=== PATIENT | female | born 1980 | race Caucasian/White ===

== ENCOUNTER 2019-03-06 06:00 | Outpatient (RCR) | payer MEDICAID, SELFPAY | END 2019-04-05 00:01 | LOC: SPT 06:00 | PROVIDERS: Family Provider Family Medicine; Visit Provider Family Medicine | DX: G89.29 Other chronic pain (principal); M54.9 Dorsalgia, unspecified | CPT/HCPCS: 97110; 97113 ==

== ENCOUNTER 2019-04-06 14:07 | Outpatient (RCR) | payer MEDICAID, SELFPAY | END 2019-04-08 23:00 | disposition home or self-care (01) | LOC: SPT 14:07 | PROVIDERS: Family Provider Family Medicine; PCP Family Medicine; Visit Provider Family Medicine | DX: M54.5 Low back pain (principal) ==

== ENCOUNTER → 2020-02-21 08:23 | Outpatient (BNVA) | payer MEDICAID, SELFPAY | PROVIDERS: Family Provider Family Medicine; PCP Family Medicine; Visit Provider Anesthesiology Pain Medicine | DX: M54.2 Cervicalgia (principal); M67.911 Unspecified disorder of synovium and tendon, right shoulder; M54.41 Lumbago with sciatica, right side; M47.819 Spondylosis without myelopathy or radiculopathy, site unspecified; M54.9 Dorsalgia, unspecified; M79.18 Myalgia, other site | CPT/HCPCS: 99205 ==

== ENCOUNTER → 2020-02-29 17:49 | Outpatient (BNVA) | payer MEDICAID, SELFPAY | PROVIDERS: Family Provider Family Medicine; PCP Family Medicine; Visit Provider Emergency Medicine | DX: Z20.828 Contact with and (suspected) exposure to other viral communicable diseases (principal) | CPT/HCPCS: 87635 ==

== ENCOUNTER → 2020-03-05 16:33 | Outpatient (BNVA) | payer MEDICAID, SELFPAY | PROVIDERS: Family Provider Family Medicine; PCP Family Medicine; Visit Provider Nurse Practitioner Family | DX: Z20.828 Contact with and (suspected) exposure to other viral communicable diseases (principal); R43.0 Anosmia; J06.9 Acute upper respiratory infection, unspecified | CPT/HCPCS: 87635 ==

== ENCOUNTER 2020-03-15 22:33 | Emergency (ER) | payer MEDICAID, SELFPAY ==
[2020-03-15 22:40] VITALS: BP 155/82; PULSE 84; RESP 18; TEMP 36.4; O2SAT 98; BMI 43.6
--- NOTE | 2020-03-15 22:49 | XR_ITS ---
WS: [id number] XR hand LT min 3V* [id number] REASON FOR EXAM: Injury/pain FINDINGS: Soft tissues appear more prominent around the proximal interphalangeal joint of the left index finger . The joint is intact and no acute fracture is identified. There are 2 tiny ovoid densities in the so ft tissues just medial to the distal and of the proximal phalanx, not an acute abnormality. The bony and joint structures of the remainder of the left hand are unremarkable. XR/XR hand LT min 3V* [id number] IMPRESSION: No fracture or dislocation of the left hand. Possible soft tissue swelling in t he index finger as above.
--- NOTE | 2020-03-15 22:59 | W.ED.EXTPRO ---
HPI - Extremity Problem General: Chief complaint: Extremity Injury, Upper Stated complaint: right hand swelling Time Seen by Provider: 03/15/20 22:51 Source: patient Mode of arrival: ambulatory Limitations: no limitations History of Present Illness: HPI Narrative: 39-year-old female patient presents to the emergency department with left hand pain. 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 Reports hand has become more painful today. She did sustain skin abrasion during the injury. She reports concern hand could be infected. MD Complaint: extremity pain (left hand) and extremity swelling (left hand) Onset (ago): day(s) (2) Pain Consistency: constant Location: left and upper extremity Severity scale (1-10): 6 Quality: aching and dull Relieving factors: immobilization, rest and other (keep the hand elevated) Exacerbating factors: range of motion and other (hanging her hand down) Associated symptoms: Reports no associated symptoms; Deny chest pain, fever(s) or rash Review of Systems General: Reports: 10 or more systems reviewed and unremarkable except in HPI and below Const: Denies: fever(s), chills or diaphoresis Eyes: Denies: blurry vision or eye redness ENMT: Denies: throat pain, dental pain or disequilibrium Card: Denies: chest pain, palpitations or irregular heart rhythm Resp: Denies: dyspnea, productive cough, non-productive cough or wheezing GI: Denies: abdominal pain, nausea or vomiting : Denies: difficulty voiding or dysuria Musc: Reports: extremity pain and extremity swelling; Denies: neck pain, back pain, muscle cramps or muscle weakness Skin/Breast: Reports: erythema, skin tenderness and changes in skin color; Denies: rash or pruritus Neuro: Denies: headache(s), weakness in extremities or behavioral changes Psych: Denies: anxiety, depression or difficulty concentrating Bruce/Lymph: Denies: easy bruising PFSH ED PFSH: Family History Mother Heart disease Diabetes Father Diabetes Family/Other Cancer breast Social History Smoking and tobacco status: former smoker Alcohol intake: never Physical Exam Const: COMMON NORMALS: no acute distress, patient oriented x3, healthy appearing and alert GENERAL APPEARANCE: cooperative, comfortable and well hydrated HENMT: COMMON NORMALS: normocephalic, Normal external nose present and moist oral mucous membranes HEAD & SCALP: normocephalic NOSE: Normal external nose present Eye: COMMON NORMALS: Equal, round and reactive pupils present and EOMs intact bilaterally GENERAL EYE: appearance normal, both eyes and all related structures PUPIL: Yes Equal, round and reactive pupils present Neck/C-Spine: COMMON NORMALS: full ROM and no lymphadenopathy GENERAL: Yes normal visual inspection and Yes trachea midline CERVICAL SPINE: Yes cervical ROM normal Lymph: LYMPHATIC: no lymphadenopathy noted Chest: COMMONS NORMALS: normal inspection of the chest Resp: COMMON NORMALS: normal respiratory effort and clear to auscultation bilaterally AUSCULTATION: clear to auscultation bilaterally Cardio: COMMON NORMALS: regular rhythm, S1 normal heart sound present, S2 normal heart sound present and Peripheral pulses 2+ throughout RHYTHM: regular rhythm HEART SOUNDS: S1 normal heart sound present and S2 normal heart sound present PERIPHERAL PULSES: Peripheral pulses 2+ throughout GI: COMMON NORMALS: Soft to palpation and non-tender INSPECTION: Yes normal to inspection PALPATION: Yes Soft to palpation : COMMON NORMALS: Yes no CVA tenderness BLADDER/KIDNEY EXAM: Yes no CVA tenderness Back/Pelvis: COMMON NORMALS: no CVA tenderness and thoracic and lumbar spine normal to inspection Extremity: COMMON NORMALS: normal to inspection and capillary refill normal GENERAL: Yes normal exam except as noted LEFT UPPER EXTREMITY: Yes wrist (pronation/supination intact) and Yes hand & digits Left hand and digits: Yes inspection (left hand dorsal swelling with abrasion to the dorsal hand), Yes palpation (pain dorsally, MCP), Yes ROM (fingers with flexion/extension ) and Yes neurovascular exam (distally intact) Neuro: COMMON NORMALS: patient oriented x3 and no focal motor deficits SENSORIUM/ORIENTATION: Yes alert Psych: COMMON NORMALS: mental status grossly normal, Normal thought process present and cooperative ACTIVITY/MOTOR BEHAVIOR: Yes appropriate eye contact THOUGHT PROCESS: Normal thought process present Skin: COMMON NORMALS: no rashes or lesions noted and turgor normal GENERAL SKIN EXAM: no rashes or lesions noted and turgor normal Procedures Orthopedic Splinting/Casting Injury #1: Side: left Upper Extremity Injury Location: wrist and hand Upper Extremity Immobilizer: volar splint and Alex wrap (with arm sling - dorsal wound cleansed/LARRY applied, telfa) Course Vital Signs: Vital signs: Vital Signs Temperature 97.6 F 03/15/20 22:40 Pulse Rate 81 03/15/20 23:48 Respiratory Rate 18 03/15/20 22:40 Blood Pressure 150/81 03/15/20 23:48 Pulse Oximetry 98 03/15/20 23:48 MDM - Extremity (Nontraumatic) Imaging Data^: Xray Ortho: My impression: question 2nd digit, middle PIP avulsion fracture - radiologist inturp pending Discharge Plan Discharge Patient Disposition: Home Clinical Impression: Crush injury of hand Qualifiers: Encounter type: initial encounter Laterality: left Qualified Code(s): S67.22XA - Crushing injury of left hand, initial encounter Abrasion hand Qualifiers: Encounter type: initial encounter Laterality: left Qualified Code(s): S60.512A - Abrasion of left hand, initial encounter Fracture of finger Qualifiers: Encounter type: initial encounter Finger: index finger Fracture type: closed Phalanx: middle Fracture alignment: nondisplaced Laterality: left Qualified Code(s): S62.651A - Nondisplaced fracture of middle phalanx of left index finger, initial encounter for closed fracture Condition: Stable Prescriptions: New clindamycin HCl 300 mg capsule 300 mg PO QID 7 Days Qty: 28 RF: 0 No Action levocetirizine 5 mg tablet 5 mg PO DAILY RF: 0 pregabalin [Lyrica] 25 mg capsule 25 mg PO BID RF: 0 baclofen 10 mg tablet 10 mg PO .1-2 TID RF: 0 bupropion HCl 300 mg tablet extended release 24 hr 300 mg PO ONCE RF: 0 ibuprofen 800 mg tablet 800 mg PO Q8H RF: 0 tizanidine 2 mg tablet 2 mg PO BID PRN (Reason: muscle spasticity) Qty: 60 RF: 0 Discharge Orders: Discharge ED (Routine); Ordered 03/15/20 Ordered By: Kathia Palacios Referrals: Don Shi MD [Primary Care Provider] - Discharge Diet: Usual diet Discharge Activity: Limit activity as instructed Patient Instructions: Crush Injury, Splint Care (ED), Abrasion (ED) Activity Restrictions/Additional Instructions: Take clindamycin until all gone, even if feeling better May wash wound with soap and water, pat dry Return to the emergency department if you develop increased hand swelling, red streaking from the abrasions, inability to move your fingers Follow-up with your primary care physician next week if not improved Apply cool compresses to the left hand to help with swelling and pain Continue arm sling to help with elevation of the hand Coding Level of Care Code ED [employer] Library Director for Shagufta Christopher Exam Comprehensive
[2020-03-15] MEDS: clindamycin 150 mg Capsule 300 MG PO (23:12)
[2020-03-15] MEDS: acetaminophen 500 mg Tablet 1000 MG PO (23:12)
[2020-03-15 23:48] VITALS: BP 150/81; PULSE 81; O2SAT 98
== END 2020-03-15 23:48 | disposition home or self-care (01) ==
PROVIDERS: Emergency Provider Nurse Practitioner Family; PCP Family Medicine
DX: S60.512A Abrasion of left hand, initial encounter (principal); S62.651A Nondisplaced fracture of middle phalanx of left index finger, initial encounter for closed fracture; S67.22XA Crushing injury of left hand, initial encounter; Z87.891 Personal history of nicotine dependence; W23.0XXA Caught, crushed, jammed, or pinched between moving objects, initial encounter
CPT/HCPCS: 12345; 29125; 73130; 99281; 99283

== ENCOUNTER 2020-04-04 05:06 | Emergency (ER) | payer MEDICAID, SELFPAY ==
[2020-04-04] VITALS (7 sets, daily range): BP systolic 139–173; BP diastolic 100–128; PULSE 80–90; RESP 18–30; TEMP 36.8; O2SAT 94–98; BMI 43.2
--- NOTE | 2020-04-04 05:27 | ECG_ITS ---
[facility] Test Date: 2020-04-04 Pat Name: Petra Herrera Department: Room: Gender: Female Veterinary Virologist: : 1980 Requested By: Deepika Holland Order Number: [id number] Gray MD: Ana Benavides M.D. Measurements Intervals [place] Rate: 88 P: 57 [place]: 130 QRS: 8 QRSD: 101 T: 47 QT: 333 QTc: 405 Interpretive Statements SINUS RHYTHM WITH SINUS ARRHYTHMIA POSSIBLE LEFT ATRIAL ENLARGEMENT [-0.1mV P WAVE IN V1/V2] INCOMPLETE RIGHT BUNDLE BRANCH BLOCK [90+ ms QRS DURATION, TERMINAL R IN V1/V2, 40+ ms S IN I/aVL/V4/V5/V6] No previous ECG available for comparison Electronically Signed On 04-04-2020 16:52:40 PAPER PATTERN FOLDER by Ana Benavides M.D. [id number]
--- NOTE | 2020-04-04 05:27 | XRR_ITS ---
PROCEDURE INFORMATION: Exam: XR Chest, 1 View Exam date and time: 04/04/2020 5:38 AM Age: 40 years old Clinical indication: Cough and shortness of breath; Additional info: SOB TECHNIQUE: Imaging protocol: XR of the chest Views: 1 view. COMPARISON: No relevant prior studies available. FINDINGS: Lungs: Unremarkable. No consolidation. Pleural space: Unremarkable. No pleural effusion. No pneumothorax. Heart/Mediastinum: Unremarkable. No cardiomegaly. Bones/joints: Unremarkable. XR/XR chest 1V portable [id number] IMPRESSION: No acute findings.
--- NOTE | 2020-04-04 05:30 | ED_ITS ---
Documented by User: Deepika Holland MD 04/04/20 05:37 HPI - SOB/Dyspnea General: Chief Complaint: Shortness of Breath/Dyspnea Stated Complaint: trouble breathing Time Seen by Provider: 04/04/20 05:23 Source: patient Mode of arrival: ambulatory Limitations: no limitations History of Present Illness: HPI Narrative: 40-year-old female has a long history of asthma states over the last 2 to 3 days she has had increasing cough and wheezing and dyspnea. She has had no fevers at home. She is concerned she may have Covid as her child is going to [place] tomorrow wants to make sure she does not have Covid. She states that she does get bronchitis and asthma attacks at this time of the year with the weather change. She denies any worsening improving factors. Associated symptoms: Deny abdominal pain, chest pain, fever(s), nausea or vomiting Review of Systems Const: Denies: fever(s), chills, body aches or change in appetite Eyes: Denies: blurry vision or eye discomfort ENMT: Denies: throat pain or dental pain Card: Denies: chest pain Resp: Reports: dyspnea, non-productive cough and wheezing GI: Denies: abdominal pain, nausea, vomiting or diarrhea : Denies: dysuria Musc: Denies: neck pain or back pain Skin/Breast: Denies: rash Neuro: Denies: headache(s) Psych: Denies: depression Bruce/Lymph: Denies: easy bruising All/Imm: Denies: urticaria PFSH ED PFSH: Family History Mother Heart disease Diabetes Father Diabetes Family/Other Cancer breast Social History Smoking and tobacco status: former smoker Alcohol intake: never Female Reproductive History: Date of last menstrual period: 03/08/20 Physical Exam Const: COMMON NORMALS: no acute distress, patient oriented x3 and healthy appearing HENMT: COMMON NORMALS: normocephalic and atraumatic HEAD & SCALP: normocephalic and atraumatic Eye: COMMON NORMALS: Equal, round and reactive pupils present and EOMs intact bilaterally PUPIL: Yes Equal, round and reactive pupils present Neck/C-Spine: COMMON NORMALS: full ROM and supple Chest: COMMONS NORMALS: normal inspection of the chest and normal palpation of entire chest wall Resp: COMMON NORMALS: normal respiratory effort, No retractions and No use of accessory muscles EFFORT & INSPECTION: Yes tachypneic AUSCULTATION: wheezes Cardio: COMMON NORMALS: regular rate, regular rhythm and No murmurs present (Cardio) RATE: regular rate RHYTHM: regular rhythm GI: COMMON NORMALS: Normal to inspection, nondistended, normoactive bowel sounds present, Soft to palpation, non-tender and no masses PALPATION: Yes Soft to palpation Extremity: COMMON NORMALS: normal to inspection and full ROM Neuro: COMMON NORMALS: patient oriented x3, moves all extremities and no focal motor deficits Psych: COMMON NORMALS: mental status grossly normal, Normal thought process present and cooperative THOUGHT PROCESS: Normal thought process present Skin: COMMON NORMALS: no rashes or lesions noted and no wounds GENERAL SKIN EXAM: no rashes or lesions noted Course Vital Signs: Vital signs: Vital Signs Temperature 98.2 F 04/04/20 05:13 Pulse Rate 82 04/04/20 06:32 Respiratory Rate 18 04/04/20 05:48 Blood Pressure 173/116 04/04/20 06:32 Pulse Oximetry 94 04/04/20 06:32 MDM - SOB/Dyspnea Lab Data: Labs: Lab Results 04/04/20 04/04/20 04/04/20 Range/Units 05:26 05:26 05:26 WBC 10.2 H (4.0-10.0) 10^3/ uL RBC 5.31 H (4.1-5.3) 10^6/u L Hgb 14.3 (11.5-15.3) g/dL Hct 45.7 (37.0-47.0) % MCV 86.1 (81-99) fL MCH 26.9 L (28.0-34.0) pg MCHC 31.3 (30.0-36.0) g/dL RDW 13.3 (12.1-15.1) % Plt Count 337 (130-400) 10^3/c mm MPV 10.0 (7.4-10.4) fL Neut % (Auto) 69.0 % Lymph % (Auto) 21.1 % Crane % (Auto) 6.0 % Eos % (Auto) 2.8 % Baso % (Auto) 0.5 % Neut # (Auto) 7.07 (1.8-7.7) 10^3/u L Lymph # (Auto) 2.2 (0.8-4.8) 10^3/u L Crane # (Auto) 0.6 (0.2-0.9) 10^3/u L Eos # (Auto) 0.3 (0.0-0.8) 10^3/u L Baso # (Auto) 0.1 (0.0-0.1) 10^3/u L Nucleated RBC % (a uto) 0 % Nucleated RBCs # 0.0 /100WBC D-Dimer 0.56 (0-0.59) ug/mIFE U Sodium 138 (136-145) mmol/L Potassium 4.4 (3.5-5.1) mmol/L Chloride 104 (98-107) mmol/L Carbon Dioxide 23 (22-29) mmol/L Anion Gap 15.4 (5-19) BUN 20 (6-20) mg/dL Creatinine 0.8 (0.5-0.9) mg/dL GFR Calculation 78.7 L (90-130) mL/min Glucose 110 (65-115) mg/dL Calculated Osmolal ity 289 (285-295) mOsm/k g Calcium 9.3 (8.5-10.5) mg/dL Total Bilirubin 0.2 (0.15-1.2) mg/dL AST 15 (0-32) U/L ALT 15 (0-33) U/L Alkaline Phosphata se 79 (35-105) IU/L NT-Pro-B Natriuret Pep 30 (0-125) pg/mL Total Protein 7.1 (6.6-8.7) g/dL Albumin 4.4 (3.5-5.2) g/dL Globulin 2.7 (1.3-4.6) g/dL SARS-CoV-2 Ag (Rap id) (Negative) 04/04/20 Range/Units 05:44 WBC (4.0-10.0) 10^3/ uL RBC (4.1-5.3) 10^6/u L Hgb (11.5-15.3) g/dL Hct (37.0-47.0) % MCV (81-99) fL MCH (28.0-34.0) pg MCHC (30.0-36.0) g/dL RDW (12.1-15.1) % Plt Count (130-400) 10^3/c mm MPV (7.4-10.4) fL Neut % (Auto) % Lymph % (Auto) % Crane % (Auto) % Eos % (Auto) % Baso % (Auto) % Neut # (Auto) (1.8-7.7) 10^3/u L Lymph # (Auto) (0.8-4.8) 10^3/u L Crane # (Auto) (0.2-0.9) 10^3/u L Eos # (Auto) (0.0-0.8) 10^3/u L Baso # (Auto) (0.0-0.1) 10^3/u L Nucleated RBC % (a uto) % Nucleated RBCs # /100WBC D-Dimer (0-0.59) ug/mIFE U Sodium (136-145) mmol/L Potassium (3.5-5.1) mmol/L Chloride (98-107) mmol/L Carbon Dioxide (22-29) mmol/L Anion Gap (5-19) BUN (6-20) mg/dL Creatinine (0.5-0.9) mg/dL GFR Calculation (90-130) mL/min Glucose (65-115) mg/dL Calculated Osmolal ity (285-295) mOsm/k g Calcium (8.5-10.5) mg/dL Total Bilirubin (0.15-1.2) mg/dL AST (0-32) U/L ALT (0-33) U/L Alkaline Phosphata se (35-105) IU/L NT-Pro-B Natriuret Pep (0-125) pg/mL Total Protein (6.6-8.7) g/dL Albumin (3.5-5.2) g/dL Globulin (1.3-4.6) g/dL SARS-CoV-2 Ag (Rap id) Positive H (Negative) EKG Data^: EKG 1: Attestation: I personally reviewed and interpreted this EKG as follows: EKG Interpretation Date: 04/04/20 EKG interpretation time: 05:20 Interpretation: Normal sinus rhythm heart rate [address] or T wave abnormalities QRS 101 QTc 379 Discharge Plan Discharge Patient Disposition: Home Clinical Impression: COVID-19, Asthma with exacerbation Condition: Stable Prescriptions: New dexamethasone 6 mg tablet 6 mg PO DAILY Qty: 7 RF: 0 No Action levocetirizine 5 mg tablet 5 mg PO DAILY RF: 0 pregabalin [Lyrica] 25 mg capsule 25 mg PO BID RF: 0 baclofen 10 mg tablet 10 mg PO .1-2 TID RF: 0 bupropion HCl 300 mg tablet extended release 24 hr 300 mg PO ONCE RF: 0 ibuprofen 800 mg tablet 800 mg PO Q8H RF: 0 tizanidine 2 mg tablet 2 mg PO BID PRN (Reason: muscle spasticity) Qty: 60 RF: 0 Discharge Orders: Discharge ED (Routine); Ordered 04/04/20 Ordered By: Savage Gaona Referrals: oDn Shi MD [Primary Care Provider] - Discharge Diet: Usual diet Discharge Activity: Increase activity as tolerated Activity Restrictions/Additional Instructions: We will have you return to the antibody infusion clinic later this morning for an infusion of monoclonal antibodies which we discussed prior to your discharge. Monitor oxygen saturations at home with a monitor given to you today. Use albuterol as needed and dexamethasone regularly Sign Out Sign Out Data: Patient Sign Out occurred on 04/04/20 at 06:16. Patient's care was discussed, and care was transferred from to Savage Gaona DO. Coding Level of Care Code ED Sex Offender Treatment Professional for Chg Fwd Exam Comprehensive Documented by User: Savage Gaona DO 04/04/20 07:22 HPI - SOB/Dyspnea General: Chief Complaint: Shortness of Breath/Dyspnea Stated Complaint: trouble breathing Time Seen by Provider: 04/04/20 05:23 PFSH ED PFSH: Family History Mother Heart disease Diabetes Father Diabetes Family/Other Cancer breast Social History Smoking and tobacco status: former smoker Alcohol intake: never Physical Exam Const: COMMON NORMALS: no acute distress GENERAL APPEARANCE: cooperative and comfortable ORIENTATION/CONSCIOUSNESS: Yes awake, Yes oriented to person, Yes oriented to place and Yes oriented to time HENMT: COMMON NORMALS: normocephalic, atraumatic and hearing grossly normal bilaterally HEAD & SCALP: normocephalic and atraumatic Neck/C-Spine: COMMON NORMALS: no JVD Resp: COMMON NORMALS: normal respiratory effort, No retractions, No use of accessory muscles and clear to auscultation bilaterally AUSCULTATION: clear to auscultation bilaterally Cardio: COMMON NORMALS: no JVD, regular rate, regular rhythm and No murmurs present (Cardio) RATE: regular rate RHYTHM: regular rhythm Extremity: COMMON NORMALS: normal to inspection, capillary refill normal, no clubbing, cyanosis or edema, no calf tenderness and no pedal edema Neuro: SENSORIUM/ORIENTATION: Yes oriented to person, Yes oriented to place and Yes oriented to time Course Vital Signs: Vital signs: Vital Signs Temperature 98.2 F 04/04/20 05:13 Pulse Rate 82 04/04/20 06:32 Respiratory Rate 18 04/04/20 05:48 Blood Pressure 173/116 04/04/20 06:32 Pulse Oximetry 94 04/04/20 06:32 MDM - SOB/Dyspnea MDM Narrative: Medical decision making narrative: Care assumed at change of shift. Labs reviewed patient is positive for Covid. Based on her BMI under asthma she would qualify for monoclonal antibody infusion. Started on dexamethasone and encouraged to use her in albuterol inhaler as needed. We will have her monitor her oxygen sats at home. If she has any worsening or change symptoms she should return to the emergency room immediately. She will return to the antibody infusion clinic later this morning to receive monoclonal antibodies a consent has been signed she wishes to proceed. Lab Data: Labs: Lab Results 04/04/20 04/04/20 04/04/20 Range/Units 05:26 05:26 05:26 WBC 10.2 H (4.0-10.0) 10^3/ uL RBC 5.31 H (4.1-5.3) 10^6/u L Hgb 14.3 (11.5-15.3) g/dL Hct 45.7 (37.0-47.0) % MCV 86.1 (81-99) fL MCH 26.9 L (28.0-34.0) pg MCHC 31.3 (30.0-36.0) g/dL RDW 13.3 (12.1-15.1) % Plt Count 337 (130-400) 10^3/c mm MPV 10.0 (7.4-10.4) fL Neut % (Auto) 69.0 % Lymph % (Auto) 21.1 % Crane % (Auto) 6.0 % Eos % (Auto) 2.8 % Baso % (Auto) 0.5 % Neut # (Auto) 7.07 (1.8-7.7) 10^3/u L Lymph # (Auto) 2.2 (0.8-4.8) 10^3/u L Crane # (Auto) 0.6 (0.2-0.9) 10^3/u L Eos # (Auto) 0.3 (0.0-0.8) 10^3/u L Baso # (Auto) 0.1 (0.0-0.1) 10^3/u L Nucleated RBC % (a uto) 0 % Nucleated RBCs # 0.0 /100WBC D-Dimer 0.56 (0-0.59) ug/mIFE U Sodium 138 (136-145) mmol/L Potassium 4.4 (3.5-5.1) mmol/L Chloride 104 (98-107) mmol/L Carbon Dioxide 23 (22-29) mmol/L Anion Gap 15.4 (5-19) BUN 20 (6-20) mg/dL Creatinine 0.8 (0.5-0.9) mg/dL GFR Calculation 78.7 L (90-130) mL/min Glucose 110 (65-115) mg/dL Calculated Osmolal ity 289 (285-295) mOsm/k g Calcium 9.3 (8.5-10.5) mg/dL Total Bilirubin 0.2 (0.15-1.2) mg/dL AST 15 (0-32) U/L ALT 15 (0-33) U/L Alkaline Phosphata se 79 (35-105) IU/L NT-Pro-B Natriuret Pep 30 (0-125) pg/mL Total Protein 7.1 (6.6-8.7) g/dL Albumin 4.4 (3.5-5.2) g/dL Globulin 2.7 (1.3-4.6) g/dL SARS-CoV-2 Ag (Rap id) (Negative) 04/04/20 Range/Units 05:44 WBC (4.0-10.0) 10^3/ uL RBC (4.1-5.3) 10^6/u L Hgb (11.5-15.3) g/dL Hct (37.0-47.0) % MCV (81-99) fL MCH (28.0-34.0) pg MCHC (30.0-36.0) g/dL RDW (12.1-15.1) % Plt Count (130-400) 10^3/c mm MPV (7.4-10.4) fL Neut % (Auto) % Lymph % (Auto) % Crane % (Auto) % Eos % (Auto) % Baso % (Auto) % Neut # (Auto) (1.8-7.7) 10^3/u L Lymph # (Auto) (0.8-4.8) 10^3/u L Crane # (Auto) (0.2-0.9) 10^3/u L Eos # (Auto) (0.0-0.8) 10^3/u L Baso # (Auto) (0.0-0.1) 10^3/u L Nucleated RBC % (a uto) % Nucleated RBCs # /100WBC D-Dimer (0-0.59) ug/mIFE U Sodium (136-145) mmol/L Potassium (3.5-5.1) mmol/L Chloride (98-107) mmol/L Carbon Dioxide (22-29) mmol/L Anion Gap (5-19) BUN (6-20) mg/dL Creatinine (0.5-0.9) mg/dL GFR Calculation (90-130) mL/min Glucose (65-115) mg/dL Calculated Osmolal ity (285-295) mOsm/k g Calcium (8.5-10.5) mg/dL Total Bilirubin (0.15-1.2) mg/dL AST (0-32) U/L ALT (0-33) U/L Alkaline Phosphata se (35-105) IU/L NT-Pro-B Natriuret Pep (0-125) pg/mL Total Protein (6.6-8.7) g/dL Albumin (3.5-5.2) g/dL Globulin (1.3-4.6) g/dL SARS-CoV-2 Ag (Rap id) Positive H (Negative) Discharge Plan Discharge Patient Disposition: Home Clinical Impression: COVID-19, Asthma with exacerbation Condition: Stable Prescriptions: New dexamethasone 6 mg tablet 6 mg PO DAILY Qty: 7 RF: 0 No Action levocetirizine 5 mg tablet 5 mg PO DAILY RF: 0 pregabalin [Lyrica] 25 mg capsule 25 mg PO BID RF: 0 baclofen 10 mg tablet 10 mg PO .1-2 TID RF: 0 bupropion HCl 300 mg tablet extended release 24 hr 300 mg PO ONCE RF: 0 ibuprofen 800 mg tablet 800 mg PO Q8H RF: 0 tizanidine 2 mg tablet 2 mg PO BID PRN (Reason: muscle spasticity) Qty: 60 RF: 0 Discharge Orders: Discharge ED (Routine); Ordered 04/04/20 Ordered By: Savage Gaona Referrals: Don Shi MD [Primary Care Provider] - Discharge Diet: Usual diet Discharge Activity: Increase activity as tolerated Activity Restrictions/Additional Instructions: We will have you return to the antibody infusion clinic later this morning for an infusion of monoclonal antibodies which we discussed prior to your discharge. Monitor oxygen saturations at home with a monitor given to you today. Use albuterol as needed and dexamethasone regularly Sign Out Sign Out Data: Patient Sign Out occurred on 04/04/20 at 06:16. Patient's care was discussed, and care was transferred from to Savage Gaona DO. Coding Level of Care Code ED Sex Offender Treatment Professional for Dimasg Fwd Exam Comprehensive
[2020-04-04 05:36] LABS: Basophils # 0.1 10^3/uL (0.0-0.1); Basophils % 0.5 %; Eosinophils # 0.3 10^3/uL (0.0-0.8); Eosinophils % 2.8 %; Hematocrit 45.7 % (37.0-47.0); Hemoglobin 14.3 g/dL (11.5-15.3); Lymphocytes # 2.2 10^3/uL (0.8-4.8); Lymphocytes % 21.1 %; Mean Corpuscular HGB Conc 31.3 g/dL (30.0-36.0); Mean Corpuscular Hemoglobin 26.9 pg (28.0-34.0); Mean Corpuscular Volume 86.1 fL (81-99); Monocytes # 0.6 10^3/uL (0.2-0.9); Neutrophils # 7.07 10^3/uL (1.8-7.7); Nucleated Red Blood Cells % 0 %; Platelet Count 337 10^3/cmm (130-400); Red Blood Count 5.31 10^6/uL (4.1-5.3); Red Cell Distribution Width 13.3 % (12.1-15.1); White Blood Count 10.2 10^3/uL (4.0-10.0)
[2020-04-04] MEDS: albuterol 8 gm MDI 2 PUFF INHALATION (05:48)
[2020-04-04 05:51] LABS: D Dimer 0.56 ug/mIFEU (0-0.59)
[2020-04-04 06:30] LABS: Alanine Aminotransferase 15 U/L (0-33); Albumin Level 4.4 g/dL (3.5-5.2); Alkaline Phosphatase 79 IU/L (35-105); Anion Gap 15.4 (5-19); Aspartate Amino Transferase 15 U/L (0-32); Blood Urea Nitrogen 20 mg/dL (6-20); Calcium 9.3 mg/dL (8.5-10.5); Carbon Dioxide 23 mmol/L (22-29); Chloride 104 mmol/L (98-107); Globulin 2.7 g/dL (1.3-4.6); Glomerular Filtration Rate 78.7 mL/min (90-130); Glucose 110 mg/dL (65-115); NT Pro B Type Natriuretic Pept 30 pg/mL (0-125); Osmolality Calculated 289 mOsm/kg (285-295); Potassium 4.4 mmol/L (3.5-5.1); Sodium 138 mmol/L (136-145); Total Bilirubin 0.2 mg/dL (0.15-1.2); Total Protein 7.1 g/dL (6.6-8.7)
[2020-04-04 06:30] LABS: SARS Covid-2 Antigen Positive (Negative)
--- NOTE | 2020-04-04 10:49 | PC.NURSE ---
Patient given pulse ox prior to DC
== END 2020-04-04 07:24 | disposition home or self-care (01) ==
PROVIDERS: Emergency Medicine; Emergency Provider Family Medicine; PCP Family Medicine
DX: U07.1 COVID-19 (principal); J45.901 Unspecified asthma with (acute) exacerbation; Z87.891 Personal history of nicotine dependence
CPT/HCPCS: 12345; 71045; 80053; 83880; 85025; 85378; 87426; 93005; 94640; 96374; 96375; 99283; 99284; J2930; J3535

== ENCOUNTER 2020-04-04 09:12 | Outpatient (CLI) | payer MEDICAID, SELFPAY ==
--- NOTE | 2020-04-04 09:56 | AMB.MCA ---
Patient Information Referred by: Candelaria Symptom onset date: 04/01/20 COVID 19 common symptoms: positive dyspnea, fatigue and headache(s) COVID 19 other sytmptoms: negative chest pressure, chest pain, pleuritic pain, requiring oxygen or requiring more oxygen Severity: moderate Treatment prior to arrival: none [facility] COVID test results: SARS-CoV-2 Antigen (Rapid) Positive (Negative) H 04/04/20 05:44 04/04/20 SARS-CoV-2 RNA (RT-PCR) Not detected (NOT DETECTED) 03/05/20 16:33 03/05/20 Criteria/Plan Inclusion/Exclusion Criteria weight >/= 40kg, + direct test </= 10 days ago and symptom onset </= 10 days ago BMI >/= 35 and has immunosuppressive disease not requiring hospitalization, not requiring oxygen (if not chronically on oxygen) and no increase oxygen requirement (if chronically on oxygen) Patient education patient/caregiver received/reviewed fact sheet, Emergency Use Authorization/unapproved drug status discussed with patient/caregiver, alternatives to this treatment discussed with patient/caregiver, risks and benefits of medication reviewed with patient/caregiver, patient/caregiver given opportunity for questions, which were answered and patient/caregiver consents to receiving Monoclonal Antibody Treatment Plan for treatment Meets criteria for Monoclonal Antibody infusion
[2020-04-04 10:07] VITALS: BP 168/85; PULSE 102; RESP 18; TEMP 36.6; O2SAT 98; BMI 43.2
[2020-04-04 10:41] VITALS: BP 141/89; PULSE 105; RESP 18; TEMP 36.6; O2SAT 97
[2020-04-04 11:02] VITALS: BP 139/83; PULSE 100; RESP 19; TEMP 36.7; O2SAT 97
[2020-04-04 12:25] VITALS: BP 128/87; PULSE 107; RESP 18; TEMP 36.7; O2SAT 98
--- NOTE | 2020-04-05 15:55 | DCPLANNER ---
Addendum entered by Inocencia Garces 04/17/20 16:24: Patient returned case work aide phone call. Patient stated that she is having some medical issues, she stated that she went to see her primary care and that her primary care physician started her on some medications. Patient has not been admitted to the hospital. Addendum entered by Inocencia Garces 04/17/20 13:46: dietary services manager called to check on patient 10 days after receiving the infusion. dietary services manager was unable to speak with patient, a voicemail was left for patient to return case work aide phone call. Addendum entered by Inocencia Garces 04/12/20 15:13: Called to check on patient after receiving the BAM infusion. Patient stated that she is doing good, not as well today as before, but doing OK. Addendum entered by Inocencia Garces 04/10/20 14:42: dietary services manager had message that patient received the BAM infusion. dietary services manager called to check on patient after receiving the infusion. Patient stated that she tolorated the infusion well, patient stated that before the infusion that the only symptom that she really had was that her asthma attacks were not stopping, she did not have a fever, she had a slight headache. After the infusion, she stated that she is feeling better, that her asthma attacks are better she still has some issues with them. Said that she still has some issues with her lungs. A follow up appointment was scheduled with Dr. Shi for Thursday, April 16, 2020 at 1:[address] Shi. dietary services manager called and gave patient the appointment information. Original Note: late entry - case manage faxed order for the BAM infusion to centralized scheduling on 04.04.20.
== END 2020-04-04 12:30 | disposition home or self-care (01) ==
PROVIDERS: PCP Family Medicine; Referring Provider Nurse Practitioner Family; Visit Provider Family Medicine
DX: U07.1 COVID-19 (principal)
CPT/HCPCS: J7050

== ENCOUNTER → 2020-10-05 11:16 | Outpatient (BNVA) | payer MEDICAID, SELFPAY | PROVIDERS: PCP Family Medicine; Visit Provider Surgery | DX: Z01.812 Encounter for preprocedural laboratory examination (principal); Z20.822 Contact with and (suspected) exposure to COVID-19 | CPT/HCPCS: 87635 ==

== ENCOUNTER → 2020-11-30 13:17 | Outpatient (BNVA) | payer MEDICAID, SELFPAY | PROVIDERS: PCP Family Medicine; Visit Provider Surgery | DX: Z20.822 Contact with and (suspected) exposure to COVID-19 (principal) | CPT/HCPCS: 87635 ==

== ENCOUNTER 2020-12-06 08:49 | Day surgery (SDC) | payer MEDICAID, SELFPAY ==
[2020-12-03 13:35] VITALS: BMI 42.9
[2020-12-06 09:20] VITALS: BP 135/107; PULSE 80; RESP 18; TEMP 36.7; O2SAT 99
--- NOTE | 2020-12-06 09:27 | ANES.PREANE2 ---
Pre-Anesthetic Assessment Pre-Anesthetic Assessment: Height/Weight: Height 1.63 m Weight 113.398 kg Preop Diagnosis: GERD, constipation Proposed Procedure: Operation Date: 12/06/20 09:30 Proposed Procedures p EGD 43020 66728 K21.9(Not Applicable) - Cody Contreras MD s Colonoscopy 99570 40779 K21.9(Not Applicable) - Cody Contreras MD Was Beta Elda taken within 24 hours: N/A Was Clonidine taken within 24 hours: N/A Last intake: 12/05/20222912/04/202029 Social: Social History: Alcohol and No tobacco Exam: Pre-Anes Outpt Exam: alert, oriented x 3 and clear to auscultation bilaterally Airway: Submandibular: WNL Cervical ROM: WNL MP: 2 Dentition: Full History/ROS: No significant history except as noted Pulmonary: Pulmonary: Asthma CV/HEM: CV/HEM: None reported : : None reported Hepatic: Hepatic: None reported GI: GI: GERD and Hiatus hernia Metabolic: Metabolic: Morbid obesity Musc/skel: Musc/skel: Lower Back Pain Comments: myofascial pain dysfunction syndrome chronic neck and back pain. Neuropsych: Neuropsych: Anxiety, Depression and Seizure (seizure free 15 years no offical diagnosis per patient) Anesthetic Plan: ASA status: 3 Anesthesia: MAC Risk of > 500 ml blood loss (7ml/kg in children): No PFSH Anesthesia PFSH: Medical History (Updated 09/14/20 @ 11:19 by Cody Contreras MD) Constipation GERD (gastroesophageal reflux disease) Surgical History (Updated 09/14/20 @ 11:19 by Cody Contreras MD) H/O oral surgery Hx of appendectomy lap-1979 Hx of carpal tunnel repair right side- 2017 Hx of dilation and curettage Hx of removal of cyst behind both ears Hx of shoulder surgery right shoulder tear repair-2017 Family History Mother Heart disease Diabetes Father Diabetes Family/Other Cancer breast Social History Smoking and tobacco status: former smoker Alcohol intake: never Female Reproductive History: Date of last menstrual period: 11/13/20 Data Anesthesia Cardiac Studies: No Data to Display
--- NOTE | 2020-12-06 09:40 | P.HP_ITS ---
Same Day Surgery H&P Indication for Procedure/HPI DATE OF PROCEDURE: December 06, 2020 CHIEF COMPLAINT/INDICATIONFOR SURGICAL PROCEDURE: EGD/colon PREOP DIAGNOSIS: GERD, constipation PLANNED PROCEDRUE: Operation Date: 12/06/20 09:30 Proposed Procedures p EGD [id number] K21.9(Not Applicable) - Cody Contreras MD s Colonoscopy [id number] K21.9(Not Applicable) - Cody Contreras MD Medications/Allergies* Home Medications Medication Instructions Recorded Confirmed Type baclofen 10 mg tablet 10 mg PO .1-2 TID tab 02/21/20 12/06/20 History ibuprofen 800 mg tablet 800 mg PO Q8H 02/21/20 12/06/20 History levocetirizine 5 mg tablet 5 mg PO DAILY 02/21/20 12/06/20 History pregabalin 25 mg capsule 25 mg PO BID 02/21/20 12/06/20 History albuterol sulfate [ProAir HFA] 2 puff INHALATION QID PRN 12/03/20 12/06/20 History ondansetron HCl 4 mg PO Q6H PRN 12/03/20 12/06/20 History pantoprazole 40 mg PO DAILY 12/03/20 12/06/20 History tizanidine 4 mg PO Q6H PRN 12/03/20 12/06/20 History Allergies/Adverse Reactions Allergy/AdvReac Type Severity Reaction Status Date / Time glycerin Allergy break out Verified 09/14/20 08:53 into sore with bright redness morphine Allergy Unknown Verified 09/14/20 08:53 adhesive tape AdvReac UNK Verified 09/14/20 08:53 codeine AdvReac RASH Verified 09/14/20 08:53 latex AdvReac ITCHING Verified 09/14/20 08:53 Penicillins AdvReac RASH Verified 09/14/20 08:53 Pertinent History/Comorbid Conditions* Medical History (Updated 09/14/20 @ 11:19 by Cody Contreras MD) Constipation GERD (gastroesophageal reflux disease) Surgical History (Updated 09/14/20 @ 11:19 by Cody Contreras MD) H/O oral surgery Hx of appendectomy lap-1979 Hx of carpal tunnel repair right side- 2018 Hx of dilation and curettage Hx of removal of cyst behind both ears Hx of shoulder surgery right shoulder tear repair-2017 Family History (Updated 02/21/20 @ 08:46 by QIAN Jones) Diabetes Mother Father Heart disease Mother Cancer Family/Other breast Social History Smoking and tobacco status: former smoker Alcohol intake: never Pertinent Exam Findings alert, oriented x 3 and regular rate & rhythm Recommendations Surgery/Procedure today Coding Level of Care Code Acute Mechanical System Technician for Shagufta Christopher
[2020-12-06] MEDS: sodium chloride 0.9% 1,000 ML 30 ML IV (09:41)
[2020-12-06 10:21] VITALS: BP 119/77; PULSE 80; RESP 16; TEMP 36.3; O2SAT 95
[2020-12-06 10:33] VITALS: BP 120/79; PULSE 71; RESP 16; O2SAT 98
--- NOTE | 2020-12-06 10:39 | ANE.PACU2 ---
Inpatient post-anesthesia follow up: Airway intact: Yes Vital signs: Temperature 97.4 F Pulse Rate 71 Respiratory Rate 16 Blood Pressure 120/79 Pulse Oximetry 98 Oxygen Delivery Me thod Room Air Oxygen Flow Rate Fraction of Inspir ed Oxygen Hydration adequate: Yes Mental status: Baseline
== END 2020-12-06 11:05 | disposition home or self-care (01) ==
PROVIDERS: PCP Family Medicine; Visit Provider Surgery
PROC: 0DJ08ZZ Inspection of Upper Intestinal Tract, Via Natural or Artificial Opening Endoscopic (ICD-10-PCS; CPT 43235; principal; 2020-12-06 09:30)
PROC: 0DJD8ZZ Inspection of Lower Intestinal Tract, Via Natural or Artificial Opening Endoscopic (ICD-10-PCS; CPT 45378; 2020-12-06 09:30)
DX: K59.00 Constipation, unspecified (principal); K21.9 Gastro-esophageal reflux disease without esophagitis; Z87.891 Personal history of nicotine dependence; Z82.49 Family history of ischemic heart disease and other diseases of the circulatory system; Z83.3 Family history of diabetes mellitus; K29.70 Gastritis, unspecified, without bleeding; K20.90 Esophagitis, unspecified without bleeding; K57.30 Diverticulosis of large intestine without perforation or abscess without bleeding; K64.8 Other hemorrhoids; E66.01 Morbid (severe) obesity due to excess calories; Z68.41 Body mass index [BMI] 40.0-44.9, adult
CPT/HCPCS: 43239; 45378; 88305; 96360; J7030

== ENCOUNTER → 2021-03-14 11:17 | Outpatient (BNVA) | payer MEDICAID, SELFPAY | PROVIDERS: PCP Family Medicine; Visit Provider Nurse Practitioner Family | DX: Z20.822 Contact with and (suspected) exposure to COVID-19 (principal); R50.9 Fever, unspecified; J45.41 Moderate persistent asthma with (acute) exacerbation | CPT/HCPCS: 87635 ==

== ENCOUNTER → 2021-04-18 11:10 | Outpatient (BNVA) | payer MEDICAID, SELFPAY | PROVIDERS: PCP Family Medicine; Visit Provider Nurse Practitioner Family | DX: Z20.822 Contact with and (suspected) exposure to COVID-19 (principal) | CPT/HCPCS: 87635 ==

== ENCOUNTER 2021-07-03 07:27 | Emergency (ER) | payer MEDICAID, SELFPAY ==
[2021-07-03] VITALS (15 sets, daily range): BP systolic 135–170; BP diastolic 80–109; PULSE 87–108; RESP 17–22; TEMP 36.8; O2SAT 94–100; BMI 42.2
--- NOTE | 2021-07-03 07:33 | W.ED.ALLEREA ---
HPI - Allergic Reaction General: Chief complaint: Allergic Reaction Stated complaint: Allergic reaction Time Seen by Provider: 07/03/21 07:32 Source: patient Mode of arrival: ambulatory Limitations: no limitations History of Present Illness: HPI narrative: 41-year-old female presents emergency room with complaint of facial swelling throat swelling. It began this morning when she woke up. She has a history of asthma and has had problems with allergic reactions in the past she recently has been cleaning home there is a concern over some exposure to mold as well as cleaning products. In the past she had allergic reaction to cleaning products she does have an EpiPen. She has been wheezing a little bit she has difficult time talking at this point. No obvious stridor. complaint: allergic reaction Onset (ago): minute(s) Exposure: cleaning product exposure Associated symptoms: Reports difficulty breathing, dysphagia and lip swelling; Deny abdominal pain, dizziness, facial swelling, hoarseness, itching, nausea, rash, tongue swelling or vomiting Review of Systems Const: Denies: fever(s), chills, body aches, change in appetite, fatigue or malaise ENMT: Reports: swelling of lips/tongue; Denies: hoarseness Card: Denies: chest pain, edema, dyspnea on exertion or orthopnea Resp: Reports: dyspnea and wheezing; Denies: productive cough or non-productive cough GI: Reports: dysphagia; Denies: abdominal pain, nausea or vomiting : Denies: flank pain, difficulty voiding, dysuria, urinary frequency or urinary urgency Skin/Breast: Denies: rash or pruritus Neuro: Denies: dizziness All/Imm: Denies: tongue swelling or facial swelling PFSH ED PFSH: Medical History (Updated 07/03/21 @ 10:39 by Savage Gaona DO) Allergic reaction Constipation GERD (gastroesophageal reflux disease) Surgical History H/O esophagogastroduodenoscopy (12/06/20) gastritis, duodenitis H/O oral surgery Hx of appendectomy lap-1979 Hx of carpal tunnel repair right side- 2018 Hx of dilation and curettage Hx of removal of cyst behind both ears Hx of shoulder surgery right shoulder tear repair-2017 Status post colonoscopy (12/06/20) normal Family History Mother Heart disease Diabetes Father Diabetes Family/Other Cancer breast Social History Smoking and tobacco status: former smoker Alcohol intake: never Female Reproductive History: Date of last menstrual period: 11/13/20 Physical Exam Const: COMMON NORMALS: no acute distress GENERAL APPEARANCE: cooperative and comfortable ORIENTATION/CONSCIOUSNESS: Yes awake, Yes oriented to person, Yes oriented to place and Yes oriented to time HENMT: COMMON NORMALS: normocephalic, atraumatic, hearing grossly normal bilaterally, Normal nasal mucous membranes and turbinates present, moist oral mucous membranes and oropharynx normal HEAD & SCALP: normocephalic and atraumatic NOSE: Normal nasal mucous membranes and turbinates present OTHER: Swelling of the lips but no swelling of the tongue or uvula posterior pharynx no auscultated will stridor in the neck Neck/C-Spine: COMMON NORMALS: no JVD Resp: COMMON NORMALS: normal respiratory effort, No retractions and No use of accessory muscles AUSCULTATION: wheezes (Scant expiratory wheeze) Cardio: COMMON NORMALS: no JVD, regular rate, regular rhythm and No murmurs present (Cardio) RATE: regular rate RHYTHM: regular rhythm GI: COMMON NORMALS: Soft to palpation and No hepatosplenomegaly present AUSCULTATION: Yes normoactive bowel sounds PALPATION: Yes Soft to palpation, No Tenderness to palpation present (GI), No Guarding due to palpation present (GI) and Yes No hepatosplenomegaly present Extremity: COMMON NORMALS: normal to inspection, capillary refill normal, no clubbing, cyanosis or edema, no calf tenderness and no pedal edema Neuro: SENSORIUM/ORIENTATION: Yes oriented to person, Yes oriented to place and Yes oriented to time Skin: COMMON NORMALS: no rashes or lesions noted GENERAL SKIN EXAM: no rashes or lesions noted Course Vital Signs: Vital signs: Vital Signs Temperature 98.3 F 07/03/21 08:05 Pulse Rate 90 07/03/21 10:45 Respiratory Rate 20 H 07/03/21 10:45 Blood Pressure 135/89 07/03/21 10:45 Pulse Oximetry 98 07/03/21 10:45 MDM - Allergic Reaction Medical Decision Making At this point patient is feeling much better she is monitored for a couple of hours. She is awake and alert able to talk whereas earlier it was little difficult for her she still feels like her uvula is somewhat swollen may be minimally swollen on repeat exam but does not significant. She is able to phonate with swallow and inhale and exhale without any difficulty. She has no further wheezing. She would prefer to go home at this point and I think it is safe. We will discharge her home on a steroid taper. Use antihistamines like [id number] Benadryl as needed return if has any further problems. She did not use any of her own subcu epinephrine so we did not refill that prescription at this visit. Medical Records I reviewed the patient's medical records. Lab Data I reviewed the patient's lab results. : 07/03/21 08:00 07/03/21 08:00 Radiology Impressions Chest X-Ray 07/03/21 07:40 IMPRESSION: Unremarkable chest radiograph. Laboratory Results WBC 10.2 10^3/uL (4.0-10.0) H 07/03/21 08:00 RBC 5.13 10^6/uL (4.1-5.3) 07/03/21 08:00 Hgb 13.7 g/dL (11.5-15.3) 07/03/21 08:00 Hct 43.8 % (37.0-47.0) 07/03/21 08:00 MCV 85.4 fl (81-99) 07/03/21 08:00 MCH 26.7 pg (28.0-34.0) L 07/03/21 08:00 MCHC 31.3 g/dL (30.0-36.0) 07/03/21 08:00 RDW 13.2 % (12.1-15.1) 07/03/21 08:00 Plt Count 388 10^3/cmm (130-400) 07/03/21 08:00 MPV 10.0 fL (7.4-10.4) 07/03/21 08:00 Neut % (Auto) 66.4 % 07/03/21 08:00 Lymph % (Auto) 23.9 % 07/03/21 08:00 [place] % (Auto) 7.0 % 07/03/21 08:00 Eos % (Auto) 2.0 % 07/03/21 08:00 Baso % (Auto) 0.4 % 07/03/21 08:00 Neut # (Auto) 6.75 10^3/uL (1.8-7.7) 07/03/21 08:00 Lymph # (Auto) 2.4 10^3/uL (0.8-4.8) 07/03/21 08:00 [place] # (Auto) 0.7 10^3/uL (0.2-0.9) 07/03/21 08:00 Eos # (Auto) 0.2 10^3/uL (0.0-0.8) 07/03/21 08:00 Baso # (Auto) 0.0 10^3/uL (0.0-0.1) 07/03/21 08:00 Nucleated RBC % (auto) 0 % 07/03/21 08:00 Nucleated RBCs # 0.0 /100WBC 07/03/21 08:00 Sodium 138 mmol/L (136-145) 07/03/21 08:00 Potassium 3.7 mmol/L (3.5-5.1) 07/03/21 08:00 Chloride 102 mmol/L (98-107) 07/03/21 08:00 Carbon Dioxide 24 mmol/L (22-29) 07/03/21 08:00 Anion Gap 15.7 (5-19) 07/03/21 08:00 BUN 12 mg/dL (6-20) 07/03/21 08:00 Creatinine 0.8 mg/dL (0.5-0.9) 07/03/21 08:00 GFR Calculation 78.3 mL/min (90-130) L 07/03/21 08:00 Glucose 104 mg/dL (65-115) 07/03/21 08:00 Calculated Osmolality 286 mOsm/kg (285-295) 07/03/21 08:00 Calcium 9.5 mg/dL (8.5-10.5) 07/03/21 08:00 Total Bilirubin 0.4 mg/dL (0.15-1.2) 07/03/21 08:00 AST 20 U/L (0-32) 07/03/21 08:00 ALT 19 U/L (0-33) 07/03/21 08:00 Alkaline Phosphatase 76 IU/L (35-105) 07/03/21 08:00 Total Protein 7.0 g/dL (6.6-8.7) 07/03/21 08:00 Albumin 4.3 g/dL (3.5-5.2) 07/03/21 08:00 Globulin 2.7 g/dL (1.3-4.6) 07/03/21 08:00 Discharge Plan Discharge Patient Disposition: Home Clinical Impression: Allergic reaction Condition: Stable Prescriptions: New prednisone 20 mg tablet 20 mg PO BID 7 Days Qty: 15 0RF Rx Instructions: 1 p.o. 3 times daily x3 days, 1 p.o. twice daily x2 days, 1 p.o. daily x2 days No Action levocetirizine 5 mg tablet 5 mg PO DAILY 0RF ibuprofen 800 mg tablet 800 mg PO Q8H 0RF tizanidine 4 mg tablet 4 mg PO Q6H PRN (Reason: Spasms) 0RF albuterol sulfate [ProAir HFA] 90 mcg/actuation HFA aerosol inhaler 2 puff INHALATION QID PRN (Reason: Shortness Of Breath) 0RF pantoprazole 40 mg tablet,delayed release (DR/EC) 40 mg PO BIDWMEAL Qty: 0 0RF duloxetine 30 mg capsule,delayed release(DR/EC) 30 mg PO DAILY 0RF Discharge Orders: Discharge ED (Routine); Ordered 07/03/21 Ordered By: Savage Gaona Referrals: Don Shi MD [Primary Care Provider] - Discharge Diet: Usual diet Discharge Activity: Resume usual activity Patient Instructions: Opioid Safety Activity Restrictions/Additional Instructions: Benadryl 25 to 50 mg every 4-6 hours as needed complete steroid taper return if you have further problems. Coding Level of Care Code ED Registered Nurse Maternity for Chg Fwd Exam Comprehensive
--- NOTE | 2021-07-03 07:40 | XR_ITS ---
WS: [id number] Exam: XR chest 1V portable [id number] Date/Time of Exam: 07/03/2021 7:44 AM Reason For Exam: dyspnea/cough Comparison 04/04/2020. Findings: The lungs are clear and fully expanded. Costophrenic angles are sharp. No infiltrates. Bronchovascula r relief appears normal. Cardiac silhouette is unremarkable. Bony elements are intact. XR/XR chest 1V portable [id number] IMPRESSION: Unremarkable chest radiograph.
[2021-07-03] MEDS: famotidine 20 mg/2 mL INJ 40 MG IVP ×2 (07:44→07:52)
[2021-07-03] MEDS: EPINEPHrine 0.1 mg/mL SYR 10 mL 1 MG (07:44)
[2021-07-03] MEDS: diphenhydrAMINE 50 mg/mL SDV 1mL IVP (07:50)
[2021-07-03 08:15] LABS: Basophils % 0.4 %; Eosinophils # 0.2 10^3/uL (0.0-0.8); Hematocrit 43.8 % (37.0-47.0); Hemoglobin 13.7 g/dL (11.5-15.3); Lymphocytes # 2.4 10^3/uL (0.8-4.8); Lymphocytes % 23.9 %; Mean Corpuscular HGB Conc 31.3 g/dL (30.0-36.0); Mean Corpuscular Hemoglobin 26.7 pg (28.0-34.0); Mean Corpuscular Volume 85.4 fl (81-99); Monocytes # 0.7 10^3/uL (0.2-0.9); Neutrophils # 6.75 10^3/uL (1.8-7.7); Neutrophils % 66.4 %; Nucleated Red Blood Cells % 0 %; Platelet Count 388 10^3/cmm (130-400); Red Blood Count 5.13 10^6/uL (4.1-5.3); Red Cell Distribution Width 13.2 % (12.1-15.1); White Blood Count 10.2 10^3/uL (4.0-10.0)
[2021-07-03 08:30] LABS: Alanine Aminotransferase 19 U/L (0-33); Albumin Level 4.3 g/dL (3.5-5.2); Alkaline Phosphatase 76 IU/L (35-105); Anion Gap 15.7 (5-19); Aspartate Amino Transferase 20 U/L (0-32); Blood Urea Nitrogen 12 mg/dL (6-20); Calcium 9.5 mg/dL (8.5-10.5); Carbon Dioxide 24 mmol/L (22-29); Chloride 102 mmol/L (98-107); Globulin 2.7 g/dL (1.3-4.6); Glomerular Filtration Rate 78.3 mL/min (90-130); Glucose 104 mg/dL (65-115); Osmolality Calculated 286 mOsm/kg (285-295); Potassium 3.7 mmol/L (3.5-5.1); Sodium 138 mmol/L (136-145); Total Bilirubin 0.4 mg/dL (0.15-1.2)
--- NOTE | 2021-07-03 08:51 | PC.NURSE ---
Patient given 0.3 mg of epi and 40 mg of famotidine 1 time. Called pharmacy and attempted to have orders linked he instructed to document on ordered ones and it will link, at this time not linked. Gave epi at 0744 and famotidine at 0752.
--- NOTE | 2021-07-03 09:45 | PC.NURSE ---
Patient in bed resting with eyes open. patient vitals stable. Patient family at bedside, they deny any needs at this time. Provider wants to monitor patient until 1030.
--- NOTE | 2021-07-03 10:54 | PC.NURSE ---
Addendum entered by Randall Cisneros RN 07/03/21 10:55: Patient had scant amount of pinkish colored vomit and mucous, notified provider. Patient states only happened one time after vomiting and coughing. Original Note: Patient had scant amount of pinkish colored vomit, notified provider. Patient states only happened one time after vomiting and coughing.
== END 2021-07-03 11:02 | disposition home or self-care (01) ==
PROVIDERS: Emergency Provider Family Medicine; PCP Family Medicine
DX: T78.40XA Allergy, unspecified, initial encounter (principal); J45.909 Unspecified asthma, uncomplicated; K21.9 Gastro-esophageal reflux disease without esophagitis; Z87.891 Personal history of nicotine dependence
CPT/HCPCS: 71045; 80053; 85025; 94640; 96374; 96375; 99284; J0171; J1200; J2930; J3490; J7611

== ENCOUNTER → 2022-02-16 16:29 | Outpatient (BNVA) | payer MEDICAID, SELFPAY | PROVIDERS: PCP Family Medicine; Visit Provider Family Medicine | DX: N39.0 Urinary tract infection, site not specified (principal); N10 Acute pyelonephritis | CPT/HCPCS: 81000; 87086 ==

== ENCOUNTER → 2022-06-04 08:35 | Outpatient (BNVA) | payer MEDICAID, SELFPAY | PROVIDERS: PCP Family Medicine; Visit Provider Nurse Practitioner Family | DX: N39.0 Urinary tract infection, site not specified (principal); J02.9 Acute pharyngitis, unspecified | CPT/HCPCS: 81000; 87071; 87880 ==

== ENCOUNTER 2022-07-08 10:09 | Outpatient (CLI) | payer MEDICAID, SELFPAY ==
--- NOTE | 2022-07-08 10:22 | CT_ITS ---
WS: [id number] CT NECK TECHNIQUE: Contrast-enhanced CT of the neck with coronal and sagittal reformatted images. CLINICAL INFORMATION: DYSPHONIA COMPARISON: None. DLP: 214.[address] scans at [facility] use at least one of these dose optimization techniques: automated e xposure control; mA and/or kV adjustment per patient size (includes targeted exams where dose is matc hed to clinical indication); or iterative reconstruction. FINDINGS: Palpable marker overlying the LEFT submandibular neck. No evidence of subcutaneous mass or lesion in this location. A few prominent submandibular lymph nodes. Normal underlying platysma. Submandibular g land is normal. Parotid glands are normal. Normal submandibular glands. A few prominent submandibular lymph nodes non specific but likely reactive. Mastoid air cells are well aerated. Mild mucosal thickening in the para nasal sinuses with small amount of fluid in the RIGHT maxillary sinus. Normal posterior nasopharynx. Normal parapharyngeal fat. Tongue base appears normal. No evidence of supraglottic or glottic mass. N ormal subglottic airway. A few small nodules in the RIGHT thyroid lobe. Otherwise no cervical lymphadenopathy. CT/CT neck w con* [id number] IMPRESSION: 1. A few prominent submandibular lymph nodes in the area of palpable concern n onspecific but likely reactive. A few prominent RIGHT submandibular space lymph nodes. 2. Otherwise no cervical lymphadenopathy. 3. Mild RIGHT maxillary sinusitis. Mastoid air cells well aerated. 4. No evidence of supraglottic or glottic mass. Normal parapharyngeal fat. 5. A few small thyroid nodules RIGHT greater than LEFT. 6. No other acute findings.
[2022-07-08] MEDS: iohexol 350 mg/mL 100 mL Btl IV (10:41)
== END 2022-07-08 10:10 | disposition home or self-care (01) ==
LOC: RAD 10:16
PROVIDERS: PCP Family Medicine; Visit Provider Specialist
DX: R49.0 Dysphonia (principal); E04.2 Nontoxic multinodular goiter; J32.0 Chronic maxillary sinusitis
CPT/HCPCS: 70491; Q9967

== ENCOUNTER 2022-07-13 07:45 | Emergency (ER) | payer MEDICAID, SELFPAY ==
[2022-07-13 08:03] VITALS: BP 162/83; PULSE 85; RESP 16; TEMP 36.8; O2SAT 98; BMI 41.5
--- NOTE | 2022-07-13 08:07 | W.ED.FEMALGU ---
HPI - Female Genitourinary General: Chief complaint: Urogenital-Female Stated complaint: urinating blood Time Seen by Provider: 07/13/22 07:46 Source: patient Mode of arrival: ambulatory Limitations: no limitations History of Present Illness: Patient is a nice 42-year-old female presents to ED today with complaint of hematuria and dysuria. Patient states around 6 AM this morning she woke up and went to urinate and noticed it was bright red blood . She states about an hour later she began noticing burning with urination and states she is now having urinary urgency/frequency. She states she does have a history of UTIs. She does have a previous history of nephrolithiasis but has not had a stone in many years. She states her symptoms do not feel like previous calculi. She is not having any flank pain. No nausea or vomiting. No fevers. States pain is localized to her suprapubic region. MD elicited complaint: dysuria, UTI and other (urinary frequency/urgency, hematuria) Onset (ago): hour(s) Severity: moderate Female Urogenital Radiation: Suprapubic Quality of pain: sharp and burning Consistency: intermittent (with urination) Vaginal discharge: none Vaginal bleeding: none Urinary symptoms: Difficulty Urinating, Dysuria, Frequency, Hematuria and Urgency Exacerbating factors: urination Relieving factors: none Associated symptoms: Reports no associated symptoms and abdominal pain (suprapubic); Deny nausea Treatment prior to arrival: none Sexual activity: Yes Patient : No Review of Systems Const: Denies: fever(s), chills, body aches, fatigue or malaise Card: Denies: chest pain Resp: Denies: dyspnea GI: Reports: abdominal pain (suprapubic); Denies: nausea, vomiting or change in bowel habits : Reports: dysuria, urinary frequency, urinary urgency and urinary hesitancy; Denies: flank pain or urinary incontinence Musc: Denies: back pain Skin/Breast: Denies: rash PFSH ED PFSH: Medical History Allergic reaction Constipation GERD (gastroesophageal reflux disease) Surgical History H/O esophagogastroduodenoscopy (12/06/20) gastritis, duodenitis H/O oral surgery Hx of appendectomy lap-1979 Hx of carpal tunnel repair right side- 2018 Hx of dilation and curettage Hx of removal of cyst behind both ears Hx of shoulder surgery right shoulder tear repair-2017 Status post colonoscopy (12/06/20) normal Family History Mother Heart disease Diabetes Father Diabetes Family/Other Cancer breast Social History Smoking and tobacco status: current every day smoker Alcohol intake: never Physical Exam Const: COMMON NORMALS: no acute distress, patient oriented x3, no limitations, alert and well nourished GENERAL APPEARANCE: cooperative NUTRITIONAL APPEARANCE: obese ORIENTATION/CONSCIOUSNESS: Yes awake, Yes oriented to person, Yes oriented to place and Yes oriented to time HENMT: COMMON NORMALS: normocephalic and atraumatic HEAD & SCALP: normal to inspection, normocephalic and atraumatic Resp: COMMON NORMALS: normal respiratory effort and clear to auscultation bilaterally AUSCULTATION: clear to auscultation bilaterally Cardio: COMMON NORMALS: regular rate and regular rhythm RATE: regular rate RHYTHM: regular rhythm GI: COMMON NORMALS: Normal to inspection, nondistended, normoactive bowel sounds present, Soft to palpation, No hepatosplenomegaly present and no masses INSPECTION: Yes normal to inspection AUSCULTATION: Yes normoactive bowel sounds PALPATION: Yes Soft to palpation, Yes Tenderness to palpation present (GI) (suprapubic), No Guarding due to palpation present (GI), No Rigid due to palpation and Yes No hepatosplenomegaly present : COMMON NORMALS: Yes no CVA tenderness BLADDER/KIDNEY EXAM: Yes no CVA tenderness Back/Pelvis: COMMON NORMALS: no CVA tenderness Neuro: COMMON NORMALS: patient oriented x3 SENSORIUM/ORIENTATION: Yes alert, Yes oriented to person, Yes oriented to place and Yes oriented to time Skin: COMMON NORMALS: no rashes or lesions noted GENERAL SKIN EXAM: no rashes or lesions noted Course Vital Signs: Vital signs: Vital Signs Temperature 98.2 F 07/13/22 08:03 Pulse Rate 81 07/13/22 08:37 Respiratory Rate 16 07/13/22 08:37 Blood Pressure 162/83 07/13/22 08:37 Pulse Oximetry 99 07/13/22 08:37 Oxygen Delivery Me thod 07/13/22 08:37 MDM - Female Medical Decision Making Patient here with acute cystitis with hematuria. Vital signs are stable. Blood work shows a white count of 13.6 but otherwise fairly unremarkable. Based on patient's history and physical exam I have no suspicion for nephro/ureterolithiasis. Will culture urine. Will place patient on Bactrim. Recommend follow-up with primary care this week if symptoms do not seem to be improving. Return to ED precautions given. Lab Data 07/13/22 08:54 07/13/22 08:54 Laboratory Results WBC 13.6 10^3/uL (4.0-10.0) H 07/13/22 08:54 RBC 5.05 10^6/uL (4.1-5.3) 07/13/22 08:54 Hgb 13.5 g/dL (11.5-15.3) 07/13/22 08:54 Hct 43.2 % (37.0-47.0) 07/13/22 08:54 MCV 85.5 fl (81-99) 07/13/22 08:54 MCH 26.7 pg (28.0-34.0) L 07/13/22 08:54 MCHC 31.3 g/dL (30.0-36.0) 07/13/22 08:54 RDW 13.2 % (12.1-15.1) 07/13/22 08:54 Plt Count 403 10^3/cmm (130-400) H 07/13/22 08:54 MPV 10.1 fL (7.4-10.4) 07/13/22 08:54 Neut % (Auto) 72.1 % 07/13/22 08:54 Lymph % (Auto) 20.7 % 07/13/22 08:54 Dillon % (Auto) 4.7 % 07/13/22 08:54 Eos % (Auto) 1.8 % 07/13/22 08:54 Baso % (Auto) 0.3 % 07/13/22 08:54 Neut # (Auto) 9.77 10^3/uL (1.8-7.7) H 07/13/22 08:54 Lymph # (Auto) 2.8 10^3/uL (0.8-4.8) 07/13/22 08:54 Dillon # (Auto) 0.6 10^3/uL (0.2-0.9) 07/13/22 08:54 Eos # (Auto) 0.3 10^3/uL (0.0-0.8) 07/13/22 08:54 Baso # (Auto) 0.0 10^3/uL (0.0-0.1) 07/13/22 08:54 Nucleated RBC % (auto) 0 % 07/13/22 08:54 Nucleated RBCs # 0.0 /100WBC 07/13/22 08:54 Potassium 3.8 mmol/L (3.5-5.1) 07/13/22 08:54 Chloride 99 mmol/L (98-107) 07/13/22 08:54 Carbon Dioxide 25 mmol/L (22-29) 07/13/22 08:54 Anion Gap 12.8 (5-19) 07/13/22 08:54 BUN 13 mg/dL (6-20) 07/13/22 08:54 Creatinine 0.8 mg/dL (0.5-0.9) 07/13/22 08:54 Glucose 89 mg/dL (65-115) 07/13/22 08:54 Calcium 9.1 mg/dL (8.5-10.5) 07/13/22 08:54 Total Bilirubin 0.3 mg/dL (0.15-1.2) 07/13/22 08:54 AST 13 U/L (0-32) 07/13/22 08:54 ALT 13 U/L (0-33) 07/13/22 08:54 Alkaline Phosphatase 73 U/L (35-105) 07/13/22 08:54 Total Protein 7.4 g/dL (6.6-8.7) 07/13/22 08:54 Albumin 4.3 g/dL (3.5-5.2) 07/13/22 08:54 Globulin 3.1 g/dL (1.3-4.6) 07/13/22 08:54 HCG, Qual Negative (Negative) 07/13/22 08:54 Urine Color Red (Yellow) 07/13/22 08:24 Urine Appearance Cloudy (CLEAR) A 07/13/22 08:24 Urine pH 8 (5-7) H 07/13/22 08:24 Ur Specific [place] 1.015 (1.005-1.030) 07/13/22 08:24 Urine Protein 3+ (Negative) H 07/13/22 08:24 Urine Glucose (UA) Norm (Normal) 07/13/22 08:24 Urine Ketones Negative (Negative) 07/13/22 08:24 Urine Blood 3+ (Negative) H 07/13/22 08:24 Urine Nitrate Negative (Negative) 07/13/22 08:24 Urine Bilirubin Neg (Negative) 07/13/22 08:24 Prot Sulfosalicylic Acd Negative (Negative) 07/13/22 08:24 Urine Urobilinogen Norm mg/dL (Negative) 07/13/22 08:24 Ur Leukocyte Esterase 1+ (Negative) H 07/13/22 08:24 Urine RBC >100 /hpf (0-2) H 07/13/22 08:24 Urine WBC 10-15 /hpf (0-5) H 07/13/22 08:24 Ur Squamous Epith Cells 0-4 /hpf (0-5) H 07/13/22 08:24 Amorphous Sediment Not Reportable 07/13/22 08:24 Urine Bacteria Trace /hpf (NONE) 07/13/22 08:24 Discharge Plan Discharge Patient Disposition: Home Clinical Impression: Acute cystitis with hematuria Condition: Stable Prescriptions: New Bactrim DS 800-160 mg tablet 1 tab PO BID 7 Days Qty: 14 0RF No Action levocetirizine 5 mg tablet 5 mg PO DAILY ibuprofen 800 mg tablet 800 mg PO Q8H baclofen 10 mg tablet 10 mg PO BID ondansetron HCl 4 mg tablet 4 mg PO Q8H PRN (Reason: nausea and vomiting) 5 Days Qty: 15 0RF clindamycin HCl 300 mg capsule 300 mg PO TID Qty: 30 0RF tizanidine 4 mg tablet 4 mg PO Q6H PRN (Reason: Spasms) albuterol sulfate [ProAir HFA] 90 mcg/actuation HFA aerosol inhaler 2 puff INHALATION QID PRN (Reason: Shortness Of Breath) pantoprazole 40 mg tablet,delayed release (DR/EC) 40 mg PO BIDWMEAL Qty: 0 0RF duloxetine 30 mg capsule,delayed release(DR/EC) 30 mg PO DAILY Discharge Orders: Discharge ED (Routine); Ordered 07/13/22 Ordered By: Negrita Koenig Referrals: Don Shi MD [Primary Care Provider] - Patient Instructions: Urinary Tract Infection in Women (DC) Coding Level of Care Code ED Auxiliary Operator for Shagufta Christopher
[2022-07-13 08:37] VITALS: BP 162/83; PULSE 81; RESP 16; O2SAT 99
[2022-07-13 09:00] LABS: Add Urine Microscopic? YES; Bilirubin Urine Neg (Negative); Blood Urine 3+ (Negative); Glucose Urine UA Norm (Normal); Ketones Urine Negative (Negative); Leukocyte Esterase Urine 1+ (Negative); Nitrate Urine Negative (Negative); Protein Urine 3+ (Negative); Specific Gravity, Urine 1.015 (1.005-1.030); Sulfosalicylic Acid Urine Negative (Negative); Urine Appearance Cloudy (CLEAR); Urine Color Red (Yellow); Urobilinogen Urine Norm (Negative); pH Urine 8 (5-7)
[2022-07-13 09:01] LABS: Add Urine Culture? Yes; Bacteria Urine TRACE /hpf; RBC Urine >100 /hpf (0-2); Squamous Epithelial Cell Urine 0-4 /hpf (0-5)
[2022-07-13 09:29] LABS: Basophils % 0.3 %; Eosinophils # 0.3 10^3/uL (0.0-0.8); Eosinophils % 1.8 %; Hematocrit 43.2 % (37.0-47.0); Hemoglobin 13.5 g/dL (11.5-15.3); Lymphocytes # 2.8 10^3/uL (0.8-4.8); Lymphocytes % 20.7 %; Mean Corpuscular HGB Conc 31.3 g/dL (30.0-36.0); Mean Corpuscular Hemoglobin 26.7 pg (28.0-34.0); Mean Corpuscular Volume 85.5 fl (81-99); Mean Platelet Volume 10.1 fL (7.4-10.4); Monocytes # 0.6 10^3/uL (0.2-0.9); Monocytes % 4.7 %; Neutrophils # 9.77 10^3/uL (1.8-7.7); Neutrophils % 72.1 %; Nucleated Red Blood Cells % 0 %; Platelet Count 403 10^3/cmm (130-400); Red Blood Count 5.05 10^6/uL (4.1-5.3); Red Cell Distribution Width 13.2 % (12.1-15.1); White Blood Count 13.6 10^3/uL (4.0-10.0)
[2022-07-13 09:58] LABS: HCG, Serum Qual Negative (Negative)
[2022-07-13 10:08] LABS: Alanine Aminotransferase 13 U/L (0-33); Albumin Level 4.3 g/dL (3.5-5.2); Alkaline Phosphatase 73 U/L (35-105); Anion Gap 12.8 (5-19); Aspartate Amino Transferase 13 U/L (0-32); Blood Urea Nitrogen 13 mg/dL (6-20); Calcium 9.1 mg/dL (8.5-10.5); Carbon Dioxide 25 mmol/L (22-29); Chloride 99 mmol/L (98-107); Globulin 3.1 g/dL (1.3-4.6); Glomerular Filtration Rate 77.9 mL/min (90-130); Glucose 89 mg/dL (65-115); Osmolality Calculated 276 mOsm/kg (285-295); Potassium 3.8 mmol/L (3.5-5.1); Sodium 133 mmol/L (136-145); Total Bilirubin 0.3 mg/dL (0.15-1.2); Total Protein 7.4 g/dL (6.6-8.7)
[2022-07-13] MEDS: sulfamethoxazole-trimeth DS 160-800 mg Tablet 2 TAB PO (10:28)
[2022-07-13 10:31] VITALS: BP 159/100; PULSE 78; O2SAT 96
== END 2022-07-13 10:32 | disposition home or self-care (01) ==
PROVIDERS: Emergency Provider Physician Assistant; PCP Family Medicine
DX: N30.01 Acute cystitis with hematuria (principal)
CPT/HCPCS: 36415; 80053; 81001; 84703; 85025; 87086; 99283

== ENCOUNTER 2022-10-13 14:56 | Outpatient (CLI) | payer MEDICAID, SELFPAY ==
--- NOTE | 2022-10-13 15:10 | MR_ITS ---
WS: [id number] MRI LUMBAR SPINE NONCONTRAST TECHNIQUE: Sagittal T1, T2 and STIR imaging. Axial T1 and T2 imaging. CLINICAL INFORMATION: LOW BACK PAIN COMPARISON: MRI 2018 FINDINGS: Mild lumbar curve. No acute compression. Mild disc bulging L3-L5. This is similar to previous. L1-L2: Normal. L2-L3: Mild disc bulging with slight effacement of ventral thecal sac. Tiny annular fissure. Mild fac et arthropathy. L3-L4: Mild disc bulging with a tiny shallow central protrusion. This is similar to previous. Slight narrowing of the subarticular recess bilaterally. Foramen are patent. Mild facet arthropathy. Spinal canal is patent. L4-L5: Mild annular bulging with a shallow central disc protrusion with a tiny annular fissure. Sligh t narrowing of the subarticular recess bilaterally, worse in the RIGHT. Mild facet arthropathy. Spina l canal appears patent. L5-S1: Mild disc bulging with a tiny RIGHT pericentral disc protrusion. Slight impingement on the RIG HT S1 nerve root. This appears slightly progressed compared to previous. Small annular fissure. Mild LEFT foraminal narrowing. Mild to moderate facet arthropathy. Visualized pelvic bony structures: Normal. Paravertebral soft tissues: Normal. MR/MR lumbar spine wo con* [id number] IMPRESSION: Images somewhat degraded by motion artifact today. 1. Tiny RIGHT pericentral protrusion L5-S1 with slight impingement on the RIGH T S1 nerve root. This appears more prominent compared to previous. Tiny annular fissure at this level with mild LEFT foraminal narrowing. 2. Shallow central protrusions at L3-L4 and L4-L5 with narrowing of the L3-L4 and RIGHT L4-L5 subarticular recess. Recommend correlation for RIGHT L5 nerve r oot symptoms. 3. Mild to moderate facet arthropathy L3-L5.
== END 2022-10-13 14:57 | disposition home or self-care (01) ==
LOC: RAD 14:57
PROVIDERS: PCP Family Medicine; Visit Provider Family Medicine
DX: M51.27 Other intervertebral disc displacement, lumbosacral region (principal); M47.816 Spondylosis without myelopathy or radiculopathy, lumbar region
CPT/HCPCS: 72148

== ENCOUNTER → 2022-12-30 11:03 | Outpatient (BNVA) | payer MEDICAID, SELFPAY | PROVIDERS: PCP Family Medicine; Visit Provider Internal Medicine Rheumatology | DX: Z79.899 Other long term (current) drug therapy (principal); M19.90 Unspecified osteoarthritis, unspecified site; Z11.59 Encounter for screening for other viral diseases; M45.6 Ankylosing spondylitis lumbar region; Z11.1 Encounter for screening for respiratory tuberculosis; M51.37 Other intervertebral disc degeneration, lumbosacral region | CPT/HCPCS: 36415; 72202; 73030; 73130; 73630; 80076; 82306; 82565; 85025; 85651; 86038; 86140; 86200; 86431; 86480; 86704; 86803; 86812; 87340 ==

== ENCOUNTER → 2023-02-04 17:18 | Outpatient (BNVA) | payer MEDICAID, SELFPAY | PROVIDERS: PCP Family Medicine; Visit Provider Nurse Practitioner | DX: J02.9 Acute pharyngitis, unspecified (principal) | CPT/HCPCS: 87880 ==

== ENCOUNTER 2023-03-11 10:36 | Outpatient (CLI) | payer MEDICAID, SELFPAY ==
[2023-03-11 10:53] LABS: Basophils % 0.6 %; Eosinophils # 0.2 10^3/uL (0.0-0.8); Eosinophils % 2.7 %; Hematocrit 41.6 % (36-47); Lymphocytes # 2.3 10^3/uL (0.8-4.8); Lymphocytes % 33.6 %; Mean Corpuscular Hemoglobin 27.1 pg (27-33); Mean Corpuscular Volume 87.4 fl (85-98); Mean Platelet Volume 9.8 fL (7.4-10.4); Monocytes # 0.3 10^3/uL (0.2-0.9); Nucleated Red Blood Cells % 0 %; Platelet Count 361 10^3/cmm (157-399); Red Blood Count 4.76 10^6/uL (3.85-5.65); Red Cell Distribution Width 13.9 % (12.1-15.1); White Blood Count 6.78 10^3/uL (3.29-11.43)
[2023-03-11 11:12] LABS: Alanine Aminotransferase 13 U/L (0-33); Albumin Level 4.2 g/dL (3.5-5.2); Alkaline Phosphatase 75 U/L (35-105); C Reactive Protein 5.8 mg/L (0.0-4.9); Globulin 2.8 g/dL (1.3-4.6); Total Bilirubin 0.2 mg/dL (0.15-1.2)
[2023-03-11 11:16] LABS: Aspartate Amino Transferase 17 U/L (0-32)
== END 2023-03-11 10:37 | disposition home or self-care (01) ==
LOC: LAB 10:36
PROVIDERS: PCP Family Medicine; Visit Provider Internal Medicine Rheumatology
DX: Z79.899 Other long term (current) drug therapy (principal); M19.90 Unspecified osteoarthritis, unspecified site
CPT/HCPCS: 36415; 80076; 82565; 85025; 86140

== ENCOUNTER 2023-07-20 14:16 | Outpatient (CLI) | payer MEDICAID, SELFPAY ==
--- NOTE | 2023-07-20 14:23 | MR_ITS ---
WS: [id number] MRI LUMBAR SPINE NONCONTRAST HISTORY: LOW BACK PAIN COMPARISON: 10/13/2022 TECHNIQUE: Sagittal and axial multisequence imaging is submitted. Normal lumbar alignment with no compression fractures or marrow edema. Mild disc space narrowing and desiccation. Conus terminates normally at L1-2 disc level. L1-L2: No stenosis. Mild facet arthritis. L2-L3: Annular disc bulging with a new central moderate-sized disc protrusion contacting and displaci ng the ventral thecal sac and narrowing the subarticular recesses. Annular disc bulging and osteophyt ic ridging. Mild facet joint arthritis. Moderate central and bilateral subarticular recess encroachme nt. Disc contacts the traversing L2 nerve roots. L3-L4: Mild annular disc bulging contacting the traversing L4 nerve roots. L4-L5: Diffuse annular disc bulging with a RIGHT foraminal broad-based disc protrusion. Broad-based d isc protrusion is new since the prior study. Mild osteophytic ridging and facet joint arthritis. Mild central, bilateral subarticular recess and foraminal stenosis. Slightly greater stenosis by disc ost eophyte extending into the RIGHT foramen. L5-S1: Diffuse annular disc bulging with osteophytic ridging and mild facet arthritis. Mild foraminal stenosis. IMPRESSION: 1. Progression of degenerative changes and disc disease throughout the lumbar spine since 10/13/2022. 2. L2-3: New moderate size central disc protrusion contacting the ventral thecal sac and the subarti cular recesses. Moderate central, bilateral subarticular recess and mild foraminal stenosis. Disc con tacts the traversing L2 nerve roots. 3. L4-5: Annular disc bulging with a RIGHT foraminal broad-based disc protrusion. Disc and osteophyt e disease contributing to mild central, bilateral subarticular recess and foraminal stenosis. Greater stenosis RIGHT foramen by disc and osteophyte disease. 4. L5-S1: Mild foraminal stenosis. 5. L3-4: Mild disc bulging contacting the traversing L4 nerve roots.
== END 2023-07-20 14:17 | disposition home or self-care (01) ==
LOC: RAD 14:16
PROVIDERS: PCP Family Medicine; Visit Provider Family Medicine
DX: M51.36 Other intervertebral disc degeneration, lumbar region (principal); M48.07 Spinal stenosis, lumbosacral region
CPT/HCPCS: 72148

== ENCOUNTER → 2023-08-04 09:33 | Outpatient (BNVA) | payer MEDICAID, SELFPAY | PROVIDERS: PCP Nurse Practitioner Family; Visit Provider Nurse Practitioner Family | DX: R07.0 Pain in throat (principal) | CPT/HCPCS: 87071; 87880 ==

== ENCOUNTER 2023-10-22 08:45 | Outpatient (CLI) | payer MEDICAID, SELFPAY ==
--- NOTE | 2023-10-22 08:57 | MR_ITS ---
WS: [id number] MRI LEFT KNEE HISTORY: L KNEE PAIN COMPARISON: None available. Anterior cruciate ligament: Heterogeneous signal within the ACL but no full-thickness tear. Normal co urse and caliber of the ligament. Posterior cruciate ligament: Intact. Medial collateral ligament: Intact. Posterior lateral corner structures: Intact. Medial menisci: Mild fraying along the superior articular surface of the posterior horn. Very mild bl unting involving the free edge of the posterior horn. Anterior horn is normal. Lateral meniscus: Intact. Normal signal, size and shape. Extensor mechanism: Distal quadriceps tendon and patellar tendons are intact. Fluid and soft tissue: No joint effusion. No Zavala's cyst. Osseous and articular structures: Patellofemoral compartment: Normal patellofemoral articulation. Small amount of increased T2 signal i n the lateral patellar facet from very minimal chondromalacia. No marrow edema. Medial compartment: Mild narrowing of the medial compartment. Mild chondromalacia weightbearing surfa ce of the femoral condyle. No marrow edema. Lateral compartment: Mild narrowing of the lateral compartment. 5 mm full-thickness cartilage defect weightbearing surface femoral condyle. MR/MR knee LT wo con* [id number] IMPRESSION: 1. No acute fractures or marrow edema. 2. Mild chondromalacia lateral patellar facet. 3. Mild narrowing the medial and lateral compartments. Full thickness 5 mm car tilage defect weightbearing surface lateral femoral condyle. 4. Mild fraying articular surfaces posterior horn medial meniscus with very sl ight blunting of the free edge. 5. No joint effusion.
== END 2023-10-22 08:52 | disposition home or self-care (01) ==
PROVIDERS: PCP Nurse Practitioner Family; Visit Provider Family Medicine
DX: M23.322 Other meniscus derangements, posterior horn of medial meniscus, left knee (principal); M25.862 Other specified joint disorders, left knee; M94.262 Chondromalacia, left knee
CPT/HCPCS: 73721

== ENCOUNTER → 2023-11-04 14:11 | Outpatient (BNVA) | payer MEDICAID, SELFPAY | PROVIDERS: PCP Nurse Practitioner Family; Visit Provider Specialist | DX: M25.562 Pain in left knee (principal); E66.01 Morbid (severe) obesity due to excess calories; Z68.42 Body mass index [BMI] 45.0-49.9, adult | CPT/HCPCS: 73560; 73565 ==

== ENCOUNTER 2023-11-24 15:21 | Outpatient (CLI) | payer MEDICAID, SELFPAY ==
[2023-11-24 16:50] LABS: Basophils % 0.7 %; Eosinophils # 0.2 10^3/uL (0.0-0.8); Eosinophils % 3.8 %; Hematocrit 40.9 % (36-47); Lymphocytes # 2.4 10^3/uL (0.8-4.8); Lymphocytes % 41.9 %; Mean Corpuscular HGB Conc 30.6 g/dL (30-55); Mean Corpuscular Hemoglobin 26.5 pg (27-33); Mean Corpuscular Volume 86.7 fl (85-98); Mean Platelet Volume 10.6 fL (7.4-10.4); Monocytes # 0.4 10^3/uL (0.2-0.9); Monocytes % 7.3 %; Neutrophils # 2.65 10^3/uL (1.8-7.7); Nucleated Red Blood Cells % 0 %; Platelet Count 311 10^3/cmm (157-399); Red Blood Count 4.72 10^6/uL (3.85-5.65); Red Cell Distribution Width 14.1 % (12.1-15.1); White Blood Count 5.77 10^3/uL (3.29-11.43)
[2023-11-24 17:49] LABS: Alanine Aminotransferase 34 U/L (0-33); Albumin Level 4.3 g/dL (3.5-5.2); Alkaline Phosphatase 64 U/L (35-105); Aspartate Amino Transferase 24 U/L (0-32); C Reactive Protein 10.7 mg/L (0.0-4.9); Globulin 2.9 g/dL (1.3-4.6); Total Bilirubin 0.2 mg/dL (0.15-1.2); Total Protein 7.2 g/dL (6.6-8.7)
== END 2023-11-24 15:22 | disposition home or self-care (01) ==
LOC: LAB 15:22
PROVIDERS: PCP Nurse Practitioner Family; Visit Provider Internal Medicine Rheumatology
DX: Z79.899 Other long term (current) drug therapy (principal); M19.90 Unspecified osteoarthritis, unspecified site
CPT/HCPCS: 36415; 80076; 82565; 85025; 86140

== ENCOUNTER → 2023-11-25 17:03 | Outpatient (BNVA) | payer MEDICAID, SELFPAY | PROVIDERS: PCP Nurse Practitioner Family; Visit Provider Registered Nurse Neonatal Intensive Care | DX: M79.641 Pain in right hand (principal); M79.89 Other specified soft tissue disorders | CPT/HCPCS: 73130 ==

== ENCOUNTER 2023-12-03 11:18 | Emergency (ER) | payer MEDICAID, SELFPAY ==
[2023-12-03 11:41] VITALS: BP 179/97; PULSE 90; RESP 18; O2SAT 99
--- NOTE | 2023-12-03 11:44 | CT_ITS ---
WS: [id number] CT HEAD TECHNIQUE: Noncontrast CT of the head obtained from the skullbase to the vertex. CLINICAL INFORMATION: ceron COMPARISON: MRI [address] thousand 4 DLP: 1076.[address] scans at [facility] use at least one of these dose optimization techniques: automated e xposure control; mA and/or kV adjustment per patient size (includes targeted exams where dose is matc hed to clinical indication); or iterative reconstruction. FINDINGS: No evidence of intracranial hemorrhage or mass effect. Ventricular system and basal cisterns are hair nt. No extra-axial fluid collections. No evidence of mass or mass effect. Normal santos-white different iation. Paranasal sinuses and mastoid air cells are well aerated. .Normal visualized soft tissues. CT/CT head wo con* [id number] IMPRESSION: 1. No evidence of intracranial hemorrhage or mass effect. 2. No acute intracranial findings.
[2023-12-03 11:46] VITALS: BP 173/101; PULSE 92; RESP 16; O2SAT 98
--- NOTE | 2023-12-03 11:46 | W.ED.HA ---
HPI - Headache General: Chief Complaint: Headache Stated Complaint: headache,n,v Time Seen by Provider: 12/03/23 11:27 Source: patient Mode of arrival: ambulatory Limitations: no limitations History of Present Illness: 43-year-old female history of migraines states she has had a headache since 4 AM this morning states headache began gradually she does have some photophobia and photophobia. Patient states headache is on the top portion of her head it is actually improved with ice she denies any neck pain denies any vision changes denies sudden onset. Associated symptoms: Deny chest pain, fever(s), nausea, rash or vomiting Related Data Home Medications Medication Instructions Recorded Confirmed levocetirizine 5 mg tablet 5 mg PO DAILY 02/21/20 11/25/23 albuterol sulfate 90 mcg/actuation 2 puff inhalation QID PRN 12/03/20 11/25/23 aerosol inhaler (ProAir HFA) Shortness Of Breath tizanidine 4 mg tablet 4 mg PO Q6H PRN Spasms 12/03/20 11/25/23 duloxetine 30 mg capsule,delayed 30 mg PO DAILY 07/03/21 11/25/23 release baclofen 10 mg tablet 10 mg PO BID 02/16/22 11/25/23 magnesium 200 mg tablet 200 mg PO DAILY 04/13/23 11/25/23 multivitamin (Daily Multi-Vitamin 1 tab PO DAILY 04/13/23 11/25/23 tablet) oxycodone 5 mg capsule 5 mg PO Q8H PRN 08/04/23 11/25/23 Previous Rx's Medication Instructions Recorded pantoprazole 40 mg tablet,delayed 40 mg PO BIDWMEAL #0 tabs 12/06/20 release diclofenac sodium 75 mg 75 mg PO Q12H PRN pain, severe 12/30/22 tablet,delayed release onlyl as needed #30 tabs fluticasone propionate 50 2 spray intranasal DAILY #16 grams 02/04/23 mcg/actuation nasal spray,suspension (Flonase Allergy Relief) ondansetron 4 mg disintegrating 4 mg PO Q6H PRN nausea and 05/21/23 tablet vomiting #30 tabs pseudoephedrine HCl 30 mg tablet See Rx Instructions PO Q6H PRN 08/04/23 (Sudafed) nasal congestion #30 tabs leflunomide 20 mg tablet 20 mg PO DAILY #90 tabs 10/14/23 sulfasalazine 500 mg tablet 0.5 g PO BID #60 tabs 10/14/23 Allergies Allergy/AdvReac Type Severity Reaction Status Date / Time glycerin Allergy break out Verified 11/25/23 16:46 into sore with bright redness morphine Allergy Unknown Verified 11/25/23 16:46 adhesive tape AdvReac UNK Verified 11/25/23 16:46 codeine AdvReac RASH Verified 11/25/23 16:46 latex AdvReac ITCHING Verified 11/25/23 16:46 Penicillins AdvReac RASH Verified 11/25/23 16:46 Review of Systems Const: Denies: fever(s), chills, body aches or change in appetite ENMT: Denies: throat pain or dental pain Card: Denies: chest pain Resp: Denies: dyspnea GI: Denies: abdominal pain, nausea, vomiting or diarrhea Musc: Denies: neck pain or back pain Skin/Breast: Denies: rash Neuro: Reports: headache(s) PFSH ED PFSH: Medical History Fibromyalgia Degenerative joint disease (DJD) of lumbar spine High risk medication use Skin lesions, generalized Inflammatory arthritis Allergic reaction Constipation GERD (gastroesophageal reflux disease) Surgical History Status post colonoscopy (12/06/20) normal H/O esophagogastroduodenoscopy (12/06/20) gastritis, duodenitis H/O oral surgery Hx of dilation and curettage Hx of removal of cyst behind both ears Hx of appendectomy lap-1979 Hx of shoulder surgery right shoulder tear repair-2017 Hx of carpal tunnel repair right side- 2018 Family History Mother Heart disease Diabetes Father Diabetes Family/Other Cancer breast Social History Smoking and tobacco/nicotine status: former use of tobacco/nicotine Alcohol intake: current Alcohol intake frequency: holidays/special occasions only Physical Exam Const: COMMON NORMALS: no acute distress, patient oriented x3 and healthy appearing HENMT: COMMON NORMALS: normocephalic and atraumatic HEAD & SCALP: normocephalic and atraumatic Eye: COMMON NORMALS: Equal, round and reactive pupils present and EOMs intact bilaterally PUPIL: Yes Equal, round and reactive pupils present Neck/C-Spine: COMMON NORMALS: full ROM and supple Chest: COMMONS NORMALS: normal inspection of the chest Resp: COMMON NORMALS: normal respiratory effort Cardio: COMMON NORMALS: regular rate, regular rhythm and No murmurs present (Cardio) RATE: regular rate RHYTHM: regular rhythm Extremity: COMMON NORMALS: normal to inspection and full ROM Neuro: COMMON NORMALS: patient oriented x3, moves all extremities and no focal motor deficits Psych: COMMON NORMALS: mental status grossly normal, Normal thought process present and cooperative THOUGHT PROCESS: Normal thought process present Skin: COMMON NORMALS: no rashes or lesions noted and no wounds GENERAL SKIN EXAM: no rashes or lesions noted Course Vital Signs: Vital signs: Vital Signs Pulse Rate 91 12/03/23 13:00 Respiratory Rate 16 12/03/23 13:00 Blood Pressure 159/92 12/03/23 13:00 Pulse Oximetry 93 12/03/23 13:00 Oxygen Delivery Me thod Room Air 12/03/23 13:00 MDM - Headache Medical Decision Making Patient presents here with a headaches likely migraine headache she feels improved after meds head CT is normal she has no signs of meningitis no signs of subarachnoid hemorrhage she has a follow-up with her PCP return if worsening she understands agrees to plan Medical Records I reviewed the patient's medical records. Lab Data Radiology Impressions Head CT 12/03/23 11:44 IMPRESSION: 1. No evidence of intracranial hemorrhage or mass effect. 2. No acute intracranial findings. All radiology interpretation(s) finalized by discharge Discharge Plan Discharge Patient Disposition: Home Clinical Impression: Headache Condition: Stable Prescriptions: No Action levocetirizine 5 mg tablet 5 mg PO DAILY diclofenac sodium 75 mg tablet,delayed release (DR/EC) 75 mg PO Q12H PRN (Reason: pain, severe onlyl as needed) Qty: 30 1RF fluticasone propionate [Flonase Allergy Relief] 50 mcg/actuation spray,suspension 2 spray intranasal DAILY Qty: 16 0RF Rx Instructions: administer into each nostril ondansetron 4 mg tablet,disintegrating 4 mg PO Q6H PRN (Reason: nausea and vomiting) Qty: 30 0RF sulfasalazine 500 mg tablet 0.5 g PO BID Qty: 60 5RF leflunomide 20 mg tablet 20 mg PO DAILY Qty: 90 1RF oxycodone 5 mg capsule 5 mg PO Q8H PRN pseudoephedrine HCl [Sudafed] 30 mg tablet See Rx Instructions PO Q6H PRN (Reason: nasal congestion) Qty: 30 0RF Rx Instructions: 1-2 tablets orally every 6 hours PRN; baclofen 10 mg tablet 10 mg PO BID multivitamin [Daily Multi-Vitamin] Tablet 1 tab PO DAILY magnesium 200 mg tablet 200 mg PO DAILY tizanidine 4 mg tablet 4 mg PO Q6H PRN (Reason: Spasms) albuterol sulfate [ProAir HFA] 90 mcg/actuation HFA aerosol inhaler 2 puff INHALATION QID PRN (Reason: Shortness Of Breath) pantoprazole 40 mg tablet,delayed release (DR/EC) 40 mg PO BIDWMEAL Qty: 0 0RF duloxetine 30 mg capsule,delayed release(DR/EC) 30 mg PO DAILY Discharge Orders: Discharge ED (Routine); Ordered 12/03/23 Ordered By: Deepika Holland Referrals: Edie Mendoza FNP [Primary Care Provider] - 4-7 days Discharge Diet: Advance as tolerated Discharge Activity: Resume usual activity Patient Instructions: Headache Coding Level of Care Code ED Student Liaison Officer for Shagufta Christopher
[2023-12-03] MEDS: ketorolac 30 mg/mL INJ 15 MG IVP (11:53)
[2023-12-03] MEDS: metoclopramide 5 mg/mL SDV 2 mL 10 MG IVP (11:55)
[2023-12-03] MEDS: diphenhydrAMINE 50 mg/mL SDV 1mL IVP (11:58)
[2023-12-03 12:41] VITALS: BP 159/92; PULSE 90; RESP 17; O2SAT 98
[2023-12-03 12:57] VITALS: RESP 18; O2SAT 98
[2023-12-03] MEDS: HYDROmorphone 1 mg/mL INJ 1 mL IVP (12:57)
[2023-12-03 13:00] VITALS: BP 159/92; PULSE 91; RESP 16; O2SAT 93
[2023-12-03 13:22] VITALS: BP 160/86; PULSE 74; RESP 16; O2SAT 96
== END 2023-12-03 13:23 | disposition home or self-care (01) ==
PROVIDERS: Emergency Provider Emergency Medicine; PCP Nurse Practitioner Family
DX: R51.9 Headache, unspecified (principal); Z87.891 Personal history of nicotine dependence
CPT/HCPCS: 70450; 96374; 96375; 99285; J1170; J1200; J1885; J2765

== ENCOUNTER 2024-01-29 08:00 | Outpatient (CLI) | payer MEDICAID, SELFPAY ==
--- NOTE | 2024-01-29 08:00 | IR_ITS ---
WS: [id number] LEFT KNEE ARTHROGRAM (FLUOROSCOPY) LEFT knee arthrogram was performed in fluoroscopy prior to MRI evaluation. HISTORY: left knee pain COMPARISON: Prior MRI knee 10/22/2023 FLUOROSCOPY TIME: 1min [id number] # of spot films: 2 Procedure, risks and complications were explained to the patient. Complications include but not limit ed to bleeding, infection and contrast reaction. Current medications are reviewed. Skin is cleansed with ChloraPrep. Skin is anesthetized with 1% buffered lidocaine. 22-gauge needle is inserted into the lateral patellofemoral joint space. Approximately 40 cc of gadolinium mixture inje cted without complication. Patient will proceed to MRI evaluation immediately. No complications were encountered. Patient is instructed to watch for post procedure infection or ble eding. Patient is also instructed to contact the radiology department with any concerns. Small amount of contrast extravasation in the joint space. There is good distention otherwise of the knee joint. IR/[place] [id number] IMPRESSION: Uncomplicated LEFT knee joint injection prior to MRI arthrogram.
--- NOTE | 2024-01-29 08:20 | MR_ITS ---
WS: [id number] MRI LEFT KNEE post arthrogram. COMPARISON: 10/22/2023 noncontrast LEFT knee MRI Multiplanar, multisequence imaging is performed with intra-articular contrast. Multiplanar post arthr ogram imaging performed of the LEFT knee. Good contrast injection and distention of the LEFT knee. Some of the contrast is injected extra-artic ular. Patellofemoral joint space: Focal chondromalacia over the lateral patellar facet enhances with contra st. Defect measures 9 mm. There are smaller defects along the medial patellar facet. No full-thicknes s defect and no marrow edema. Blunting and small caliber of the posterior horn medial meniscus with a small amount of contrast at t he blunted meniscal surface. Although only seen on the sagittal sequence this is suspicious for a tea r of the free edge. The posterior meniscus appears normal. No ACL or PCL tears. Mild narrowing of the medial and lateral compartments. Focal cartilaginous defect measures 5.6 mm consuelo ng the weightbearing surface of the lateral femoral condyle. Full-thickness defect. Otherwise there i s very mild fraying of the surfaces in both the medial and lateral compartments. Small Zavala's cyst. Additional fluid extending along the popliteus tendon. MR/MR knee LT wo/w con [id number] IMPRESSION: 1. 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 2. Blunted free edge posterior horn of the medial meniscus distends with contr ast. Consistent with a meniscal tear at the free edge. 3. 5.6 mm focal cartilaginous defect along the weightbearing surface of the la teral femoral condyle. Full-thickness defect but no subchondral cyst. 4. Small Zavala's cyst.
[2024-01-29] MEDS: gadobenate dimeglumine 20 mL vial IV (09:22)
[2024-01-29] MEDS: iohexol 240 mg/mL 50 mL Btl 30 ML INTRA-ARTI (09:23)
== END 2024-01-29 08:14 | disposition home or self-care (01) ==
PROVIDERS: PCP Nurse Practitioner Family; Visit Provider Specialist
DX: M25.562 Pain in left knee (principal); M22.42 Chondromalacia patellae, left knee; M71.22 Synovial cyst of popliteal space [Baker], left knee; M25.862 Other specified joint disorders, left knee
CPT/HCPCS: 27369; 73723; 77002; A9577

== ENCOUNTER 2024-03-15 11:20 | Outpatient (CLI) | payer MEDICAID, SELFPAY ==
--- NOTE | 2024-03-15 11:20 | MM_ITS ---
WS: [id number] BILATERAL 3D TOMOSYNTHESIS DIGITAL SCREENING MAMMOGRAM WITH CAD CLINICAL INFORMATION: SCREENING HISTORY: Screening mammogram. No current complaints. COMPARISON: 2013 TECHNIQUE: Bilateral CC and MLO views. FINDINGS: Fatty-replaced breasts bilaterally. No suspicious focal mass, asymmetry, calcifications, or architectural manager ural distortion. No evidence of malignancy. Benign calcifications RIGHT breast. MM/MM scr tomosynthesis [id number] IMPRESSION: DENSITY: There are scattered areas of fibroglandular density. BI-RADS: 2 - Benign. FOLLOW UP: 1 Year Follow-up Recommend return to annual screening mammography.
== END 2024-03-15 11:21 | disposition home or self-care (01) ==
PROVIDERS: PCP Family Medicine; Visit Provider Family Medicine
DX: Z12.31 Encounter for screening mammogram for malignant neoplasm of breast (principal); R92.313 Mammographic fatty tissue density, bilateral breasts; R92.1 Mammographic calcification found on diagnostic imaging of breast
CPT/HCPCS: 77063; 77067

== ENCOUNTER 2024-04-21 17:57 | Emergency (ER) | payer BC, MEDICAID, SELFPAY ==
[2024-04-21 18:06] VITALS: BP 166/107; PULSE 91; RESP 16; TEMP 36.7; O2SAT 97; BMI 44.4
[2024-04-21 19:51] LABS: Basophils % 0.6 %; Eosinophils % 0.1 %; Lymphocytes # 2.4 10^3/uL (0.8-4.8); Lymphocytes % 33.7 %; Mean Corpuscular Hemoglobin 26.6 pg (27-33); Mean Corpuscular Volume 88.8 fl (85-98); Mean Platelet Volume 10.2 fL (7.4-10.4); Monocytes # 0.6 10^3/uL (0.2-0.9); Monocytes % 8.2 %; Neutrophils % 57.1 %; Nucleated Red Blood Cells % 0 %; Platelet Count 329 10^3/cmm (157-399); Red Blood Count 4.28 10^6/uL (3.85-5.65); Red Cell Distribution Width 14.3 % (12.1-15.1); White Blood Count 7.18 10^3/uL (3.29-11.43)
[2024-04-21 20:13] LABS: Alanine Aminotransferase 15 U/L (0-33); Albumin Level 4.1 g/dL (3.5-5.2); Alkaline Phosphatase 67 U/L (35-105); Anion Gap 11.7 (5-19); Aspartate Amino Transferase 15 U/L (0-32); Blood Urea Nitrogen 14 mg/dL (6-20); Calcium 8.6 mg/dL (8.5-10.5); Carbon Dioxide 27 mmol/L (22-29); Chloride 103 mmol/L (98-107); Creatinine Clr Calc Pharmacy 131.0163; Globulin 2.6 g/dL (1.3-4.6); Glomerular Filtration Rate 90.1 mL/min (90-130); Glucose 106 mg/dL (65-115); Osmolality Calculated 287 mOsm/kg (285-295); Potassium 3.7 mmol/L (3.5-5.1); Sodium 138 mmol/L (136-145); Total Bilirubin 0.2 mg/dL (0.15-1.2); Total Protein 6.7 g/dL (6.6-8.7)
[2024-04-21 20:31] VITALS: BP 131/95; PULSE 78; RESP 16; O2SAT 97
--- NOTE | 2024-04-21 20:40 | CTR_ITS ---
PROCEDURE INFORMATION: Exam: CT Abdomen And Pelvis Without Contrast Exam date and time: 04/21/2024 8:48 PM Age: 44 years old Clinical indication: Abdominal pain; Prior surgery; Surgery date: 6+ months; Surgery type: Appy, tubal; Additional info: Right flank pain, right pelvic pain, history of ovarian cyst TECHNIQUE: Imaging protocol: Computed tomography of the abdomen and pelvis without contrast. Radiation optimization: All CT scans at this facility use at least one of these dose optimization techniques: automated exposure control; mA and/or kV adjustment per patient size (includes targeted exams where dose is matched to clinical indication); or iterative reconstruction. COMPARISON: CT abdomen pelvis w con* [id number] 03/29/2018 10:17 PM RADIATION DOSE METRICS: Total DLP (mGy-cm): 1127.71 FINDINGS: Liver: Normal. No mass. Gallbladder and biliary ducts: Normal. No calcified stones. No ductal dilation. Pancreas: Normal. No ductal dilation. Spleen: Normal. No splenomegaly. Adrenal glands: Normal. No mass. Kidneys and ureters: Normal. No hydronephrosis. Stomach and bowel: Unremarkable. No obstruction. No mucosal thickening. Appendix: The appendix is not visualized but there are no secondary signs of acute appendicitis. Intraperitoneal space: Unremarkable. No free air. No significant fluid collection. Vasculature: Unremarkable. No abdominal aortic aneurysm. Lymph nodes: Unremarkable. No enlarged lymph nodes. Urinary bladder: Unremarkable as visualized. Reproductive: Unremarkable as visualized. Bones/joints: Unremarkable. No acute fracture. Soft tissues: Unremarkable. CT/CT kidney stone [id number] IMPRESSION: 1. No bowel obstruction or inflammatory process associated with the bowel. 2. No free air or significant free fluid in the abdomen or pelvis. 3. The appendix is not visualized but there are no secondary signs of acute appendicitis. 4. No hydronephrosis or renal calculus. No stone in the bladder.
--- NOTE | 2024-04-21 20:41 | W.ED.FEMALGU ---
HPI - Female Genitourinary General: Chief complaint: Urogenital-Female Stated complaint: flank pain odor Time Seen by Provider: 04/21/24 20:15 History of Present Illness: Patient presents to the ER with complaints of foul-smelling urine, pain when urinating, right flank pain right pelvic pain. Patient went to her PCP earlier today where they did a UA and told her she does not have a urinary tract infection. Patient does have a history of PCOS and ovarian cysts. Patient denies any nausea vomiting diarrhea fever or chills. Date of Last Menstrual Period: 03/22/24 Related Data Home Medications Medication Instructions Recorded Confirmed levocetirizine 5 mg tablet 5 mg PO DAILY 02/21/20 04/21/24 albuterol sulfate 90 mcg/actuation 2 puff inhalation QID PRN 12/03/20 04/21/24 aerosol inhaler (ProAir HFA) Shortness Of Breath tizanidine 4 mg tablet 4 mg PO Q6H PRN Spasms 12/03/20 04/21/24 duloxetine 30 mg capsule,delayed 30 mg PO DAILY 07/03/21 04/21/24 release baclofen 10 mg tablet 10 mg PO BID 02/16/22 04/21/24 magnesium 200 mg tablet 200 mg PO DAILY 04/13/23 04/21/24 multivitamin (Daily Multi-Vitamin 1 tab PO DAILY 04/13/23 04/21/24 tablet) oxycodone 5 mg capsule 5 mg PO Q8H PRN 08/04/23 04/21/24 acetaminophen 500 mg capsule 1,000 mg PO DAILY 02/22/24 04/21/24 tramadol 25 mg tablet 25 mg PO QID PRN 03/14/24 04/21/24 Previous Rx's Medication Instructions Recorded pantoprazole 40 mg tablet,delayed 40 mg PO BIDWMEAL #0 tabs 12/06/20 release fluticasone propionate 50 2 spray intranasal DAILY #16 grams 02/04/23 mcg/actuation nasal spray,suspension (Flonase Allergy Relief) ondansetron 4 mg disintegrating 4 mg PO Q6H PRN nausea and 05/21/23 tablet vomiting #30 tabs prednisone 20 mg tablet See Rx Instructions PO .COMPLEX 02/22/24 PRN joint pain flare #30 tabs sulfasalazine 500 mg tablet See Rx Instructions PO .COMPLEX 02/22/24 #90 tabs leflunomide 20 mg tablet 20 mg PO DAILY #90 tabs 03/17/24 Allergies Allergy/AdvReac Type Severity Reaction Status Date / Time glycerin Allergy break out Verified 04/21/24 11:12 into sore with bright redness morphine Allergy Unknown Verified 04/21/24 11:12 adhesive tape AdvReac UNK Verified 04/21/24 11:12 codeine AdvReac RASH Verified 04/21/24 11:12 latex AdvReac ITCHING Verified 04/21/24 11:12 Penicillins AdvReac RASH Verified 04/21/24 11:12 Review of Systems General: Reports: 10 or more systems reviewed and unremarkable except in HPI and below PFSH ED PFSH: Medical History Psoriatic arthritis Fibromyalgia Degenerative joint disease (DJD) of lumbar spine High risk medication use Skin lesions, generalized Inflammatory arthritis Allergic reaction Constipation GERD (gastroesophageal reflux disease) Surgical History Status post colonoscopy (12/06/20) normal H/O esophagogastroduodenoscopy (12/06/20) gastritis, duodenitis H/O oral surgery Hx of dilation and curettage Hx of removal of cyst behind both ears Hx of appendectomy lap-1979 Hx of shoulder surgery right shoulder tear repair-2016 Hx of carpal tunnel repair right side- 2018 Family History Mother Heart disease Diabetes Father Diabetes Family/Other Cancer breast Social History Smoking and tobacco/nicotine status: never used tobacco/nicotine Alcohol intake: current Alcohol intake frequency: holidays/special occasions only Female Reproductive History: Date of last menstrual period: 03/22/24 Physical Exam Const: COMMON NORMALS: no acute distress, average body habitus, patient oriented x3, no limitations, healthy appearing, alert and well nourished HENMT: COMMON NORMALS: normocephalic, atraumatic, hearing grossly normal bilaterally, external ears normal, Normal external nose present and moist oral mucous membranes HEAD & SCALP: normocephalic and atraumatic NOSE: Normal external nose present EXTERNAL EAR: Yes external ears normal Neck/C-Spine: COMMON NORMALS: no JVD Chest: COMMONS NORMALS: normal inspection of the chest and normal palpation of entire chest wall Resp: COMMON NORMALS: normal respiratory effort, No retractions, No use of accessory muscles and clear to auscultation bilaterally AUSCULTATION: clear to auscultation bilaterally Cardio: COMMON NORMALS: no JVD, regular rate, regular rhythm, S1 normal heart sound present, S2 normal heart sound present, No gallops present (Cardio), No clicks present (Cardio), No murmurs present (Cardio) and No rub (Cardio) RATE: regular rate RHYTHM: regular rhythm HEART SOUNDS: S1 normal heart sound present and S2 normal heart sound present GI: COMMON NORMALS: Normal to inspection, nondistended, normoactive bowel sounds present, Soft to palpation, non-tender, No hepatosplenomegaly present and no masses PALPATION: Yes Soft to palpation and Yes No hepatosplenomegaly present Neuro: COMMON NORMALS: patient oriented x3 SENSORIUM/ORIENTATION: Yes alert Course Vital Signs: Vital signs: Vital Signs Temperature 98.1 F 04/21/24 18:06 Pulse Rate 79 04/21/24 21:26 Respiratory Rate 20 H 04/21/24 21:26 Blood Pressure 172/93 04/21/24 21:26 Pulse Oximetry 97 04/21/24 21:26 Oxygen Delivery Me thod Room Air 04/21/24 21:26 MDM - Female Medical Decision Making Lab work was reviewed as well as urinalysis and abdominal pelvic CT scan all which was essentially unremarkable. These results was discussed with the patient. Patient be discharged home Medical Records I reviewed the patient's medical records. Lab Data I reviewed the patient's lab results. 04/21/24 19:30 04/21/24 19:30 Radiology Impressions Abdomen/Pelvis CT 04/21/24 20:40 IMPRESSION: 1. No bowel obstruction or inflammatory process associated with the bowel. 2. No free air or significant free fluid in the abdomen or pelvis. 3. The appendix is not visualized but there are no secondary signs of acute appendicitis. 4. No hydronephrosis or renal calculus. No stone in the bladder. Laboratory Results WBC 7.18 10^3/uL (3.29-11.43) 04/21/24 19:30 RBC 4.28 10^6/uL (3.85-5.65) 04/21/24: Hgb 11.40 g/dL (11.27-16.99) 04/21/24: Hct 38.0 % (36-47) 04/21/24: MCV 88.8 fl (85-98) 04/21/24: MCH 26.6 pg (27-33) L 04/21/24: MCHC 30.0 g/dL (30-55) 04/21/24: RDW 14.3 % (12.1-15.1) 04/21/24 Plt Count 329 10^3/cmm (157-399) 04/21/24 MPV 10.2 fL (7.4-10.4) 04/21/24 Neut % (Auto) 57.1 % 04/21/24: Lymph % (Auto) 33.7 % 04/21/24: [place] % (Auto) 8.2 % 04/21/24: Eos % (Auto) 0.1 % 04/21/24 Baso % (Auto) 0.6 % 04/21/24 Neut # (Auto) 4.10 10^3/uL (1.8-7.7) 04/21/24: Lymph # (Auto) 2.4 10^3/uL (0.8-4.8) 04/21/24: [place] # (Auto) 0.6 10^3/uL (0.2-0.9) 04/21/24: Eos # (Auto) 0.0 10^3/uL (0.0-0.8) 04/21/24 Baso # (Auto) 0.0 10^3/uL (0.0-0.1) 04/21/24 Nucleated RBC % (auto) 0 % 04/21/24 Nucleated RBCs # 0.0 /100WBC 04/21/24: Sodium 138 mmol/L (136-145) 04/21/24: Potassium 3.7 mmol/L (3.5-5.1) 01/16/25 19:30 Chloride 103 mmol/L (98-107) 04/21/24 19:30 Carbon Dioxide 27 mmol/L (22-29) 04/21/24 19: Anion Gap 11.7 (5-19) 04/21/24 19:30 BUN 14 mg/dL (6-20) 04/21/24 19:30 Creatinine 0.7 mg/dL (0.5-0.9) 04/21/24: GFR Calculation 90.1 mL/min (90-130) 04/21/24 19: Glucose 106 mg/dL (65-115) 04/21/24 19: Calculated Osmolality 287 mOsm/kg (285-295) 04/21/24: Calcium 8.6 mg/dL (8.5-10.5) 04/21/24: Total Bilirubin 0.2 mg/dL (0.15-1.2) 04/21/24: AST 15 U/L (0-32) 04/21/24: ALT 15 U/L (0-33) 04/21/24 19: Alkaline Phosphatase 67 U/L (35-105) 04/21/24 19:30 Total Protein 6.7 g/dL (6.6-8.7) 04/21/24 19: Albumin 4.1 g/dL (3.5-5.2) 04/21/24 19:30 Globulin 2.6 g/dL (1.3-4.6) 04/21/24 19:30 Urine Color Yellow (Yellow) 04/21/24 20:35 Urine Appearance Clear (CLEAR) 04/21/24: Urine pH 7.5 (5-7) 04/21/24:35 Ur Specific [place] 1.012 (1.005-1.030) 04/21/24: Urine Protein Negative (Negative) 04/21/24 20: Urine Glucose (UA) Negative (Normal) 04/21/24: Urine Ketones Negative (Negative) 04/21/24 20: Urine Blood Negative (Negative) 04/21/24 20:35 Urine Nitrate Negative (Negative) 04/21/24: Urine Bilirubin Negative (Negative) 04/21/24: Urine Urobilinogen 0.2 mg/dL (Negative) 04/21/24 20:35 Ur Leukocyte Esterase Negative (Negative) 04/21/24 20:35 Urine RBC 0-2 /hpf (0-2) 04/21/24 20:35 Urine WBC 0-5 /hpf (0-5) 04/21/24 20:35 Ur Squamous Epith Cells 0-5 /hpf (0-5) 04/21/24 20:35 Amorphous Sediment Not Reportable 04/21/24 20:35 Urine Bacteria None seen /hpf (NONE) 04/21/24 20:35 Hyaline Casts 0-4 /lpf H 04/21/24 20:35 All radiology interpretation(s) finalized by discharge Discharge Plan Discharge Patient Disposition: Home Clinical Impression: Abdominal wall pain in right flank, Pelvic pain Condition: Stable Prescriptions: No Action levocetirizine 5 mg tablet 5 mg PO DAILY fluticasone propionate [Flonase Allergy Relief] 50 mcg/actuation spray,suspension 2 spray intranasal DAILY Qty: 16 0RF Rx Instructions: administer into each nostril ondansetron 4 mg tablet,disintegrating 4 mg PO Q6H PRN (Reason: nausea and vomiting) Qty: 30 0RF oxycodone 5 mg capsule 5 mg PO Q8H PRN sulfasalazine 500 mg tablet See Rx Instructions PO .COMPLEX Qty: 90 5RF Rx Instructions: take 2 tabs in am and 1 tab in pm orally; prednisone 20 mg tablet See Rx Instructions PO .COMPLEX PRN (Reason: joint pain flare) Qty: 30 1RF Rx Instructions: take 2 tab daily for 7 days as needed for arthritis flare PO PRN; acetaminophen 500 mg capsule 1,000 mg PO DAILY baclofen 10 mg tablet 10 mg PO BID multivitamin [Daily Multi-Vitamin] Tablet 1 tab PO DAILY magnesium 200 mg tablet 200 mg PO DAILY tramadol 25 mg tablet 25 mg PO QID PRN leflunomide 20 mg tablet 20 mg PO DAILY Qty: 90 1RF tizanidine 4 mg tablet 4 mg PO Q6H PRN (Reason: Spasms) albuterol sulfate [ProAir HFA] 90 mcg/actuation HFA aerosol inhaler 2 puff INHALATION QID PRN (Reason: Shortness Of Breath) pantoprazole 40 mg tablet,delayed release (DR/EC) 40 mg PO BIDWMEAL Qty: 0 0RF duloxetine 30 mg capsule,delayed release(DR/EC) 30 mg PO DAILY Discharge Orders: Discharge ED (Routine); Ordered 04/21/24 Ordered By: Elian Castorena Referrals: Don Shi MD [Primary Care Provider] - 1 week Patient Instructions: Abdominal Pain (ED) Activity Restrictions/Additional Instructions: Thank you for choosing [facility] for your healthcare needs today. Please realize that you were seen in the emergency department and that we are providing you with an emergency medical screening exam and this may not be a complete and all exclusive of all testing and/or medical workup we may need to determine your element or severity of your illness. It is very important that you follow-up as instructed with your primary care provider or specialist for the additional evaluation and to discuss your medical treatment plan. You may return to the emergency department should you have concerns or if your condition changes or worsens in any way. Coding Level of Care Code ED Bereavement Program Coordinator for Shagufta Christopher
[2024-04-21 20:43] LABS: Bilirubin Urine Negative (Negative); Blood Urine Negative (Negative); Glucose Urine UA Negative (Normal); Ketones Urine Negative (Negative); Leukocyte Esterase Urine Negative (Negative); Nitrate Urine Negative (Negative); Protein Urine Negative (Negative); Specific Gravity, Urine 1.012 (1.005-1.030); Urine Appearance Clear (CLEAR); Urine Color Yellow (Yellow); Urobilinogen Urine 0.2 mg/dL (Negative); pH Urine 7.5 (5-7)
[2024-04-21 20:45] LABS: Add Urine Microscopic? YES; Bacteria Urine None Seen /hpf; Hyaline Casts Urine 0-4 /lpf; RBC Urine 0-2 /hpf (0-2); Squamous Epithelial Cell Urine 0-5 /hpf (0-5); WBC Urine 0-5 /hpf (0-5)
[2024-04-21 21:26] VITALS: BP 172/93; PULSE 79; RESP 20; O2SAT 97
[2024-04-21 22:21] VITALS: BP 163/99; PULSE 72; RESP 16; O2SAT 100
== END 2024-04-21 22:22 | disposition home or self-care (01) ==
PROVIDERS: Physician Assistant; Emergency Provider Emergency Medicine; PCP Family Medicine
DX: R10.9 Unspecified abdominal pain (principal); R10.2 Pelvic and perineal pain
CPT/HCPCS: 36415; 74176; 80053; 81000; 81001; 85025; 99284

== ENCOUNTER 2024-12-21 11:01 | Emergency (ER) | payer BC, MEDICAID, SELFPAY ==
[2024-12-21 11:07] VITALS: BP 154/87; PULSE 93; TEMP 36.6; O2SAT 97
--- OUTSIDE RECORDS SUMMARY | 2024-12-21 11:09 | XMS_ITS | Clinical Summary ---
Author Organization [facility] Address [address] [place] [address] Phone Care Team Providers Care Accountant Manager Name Role Phone Unavailable Primary Care Provider Unavailabl e Allergies Active Allergy Reactions Criticality Noted Date Comments Adhesive Hives High 01/17/2016 Codeine Nausea and Vomiting High 01/17/2016 Rash Latex Hives High 01/17/2016 Penicillins Anaphylaxis High 01/17/2016 Patient states all cillins Medications pregabalin (LYRICA) 25 mg Capsule Take 25 mg by mouth 2 times daily. 10/05/2019 Active famotidine (PEPCID) 20 mg tablet Take 20 mg by mouth 2 times daily. 10/05/2019 Active LORazepam (ATIVAN) 0.5 mg tabletIndication s:Chronic migraine without aura, with intractable migraine, so stated, with status migrainosus Take 1 Tablet (0.5 mg) by mouth every 4 hours as needed for Anxiety. 2 Tablet 0 10/21/2019 Active levocetirizine (XYZAL) 5 mg tablet Take 5 mg by mouth 2 times daily. 08/26/2019 Active baclofen (LIORESAL) 10 mg tablet Take 10 mg by mouth 3 times daily. 08/26/2019 Active topiramate (TOPAMAX) 25 mg tablet One tablet at night for 1stweek; one tablet at morning, one tablet at night for 2nd week; one tablet at morning, two tablet at evening for 3rd week; then two tablet at morning, two tablet at evening. 120 Tablet 1 10/19/2019 Active ibuprofen (MOTRIN) 800 mg tablet Take 800 mg by mouth every 6 hours as needed for Pain, Mild. 12/02/2016 Active HYDROcodone-acet aminophen (NORCO) 5-325 mg tablet Take 1 Tablet by mouth every 4 hours as needed for Pain, Moderate. 12/02/2016 Active cetirizine (ZyrTEC) 5 mg tablet Take 5 mg by mouth daily. 12/02/2016 Active CHOLECALCIFEROL, VITAMIN D3, ORAL Take by mouth. Active Active Problems No known active problems Social History Tobacco Use Types Packs/Day Years Used Date Smoking Tobacco: Former Smokeless Tobacco: Never Tobacco Cessation:Counseling Given: Not Answered Alcohol Use Standard Drinks/Week Comments Yes 0 (1 standard drink = 0.6 oz pur e alcohol) Comments Unknown Sex and Gender Information Value Date Recorded Sex Assigned at Not on file Legal Sex Female 3:08 AM [facility] Gender Identity Not on file Sexual Orientation Not on file Last Filed Vital Signs Vital Sign Reading Time Taken Comments Blood Pressure 128/72 01/15/2023 2:15 PM CDT Pulse 83 12/02/2016 1:43 PM CDT Temperature - - Respiratory Rate - - Oxygen Saturation - - Inhaled Oxygen Concentration - - Weight 112.9 kg (249 lb) 01/15/2023 2:15 PM CDT Height 163.8 cm (5' 4.5 ) 01/15/2023 2:15 PM CDT Body Mass Index 42.08 01/15/2023 2:15 PM CDT Plan of Treatment Health Maintenance Due Date Last Done Comments DTAP/TDAP/TD VACCINES (1 - Tdap) 1997 HEPATITIS B VACCINES (1 of 3 - 19+ 3-dose series) 1997 HPV/Cotest (21-29) 1999 CERVICAL CANCER SCREENING 2008 HPV/Cotest (30-65) 2008 PAP SMEAR 2008 BREAST CANCER SCREENING 2018 COLORECTAL SCREENING 2023 Colorectal Cancer Screening 2023 FIT-DNA Q 3 years 2023 FIT/FOBT Q 1 year 2023 Flex Sig/CT Colonography Q 5 years 2023 INFLUENZA VACCINE (#1) 2024 12/12/2016 HPV VACCINES Aged Out No longer eligi ble based on patient's age to complete this topic Insurance [address] [place] [address] [facility] PLAN [facility] [id number]
--- NOTE | 2024-12-21 13:50 | W.ED.BACK ---
Documented by User: CIPRIANO Charles 12/21/24 14:25 HPI - Back Pain/Injury General: Chief Complaint: Back Pain/Injury Stated Complaint: Mid to Lower Back Pain Time Seen by Provider: 12/21/24 13:00 Source: patient Mode of arrival: ambulatory Limitations: no limitations History of Present Illness: Patient is a 44-year-old female who presents the emergency department planing of low back pain beginning last night. She states she bent over to pick something up, had the sudden onset of pain and she compares this to prior episodes, stating that normally in the past she receives IM steroids and this helps. Denies any urinary symptoms or history of kidney stones. No dysuria or hematuria. No bowel or bladder incontinence, no saddle anesthesia. No history of fevers, history of cancer, history of IV drug use, or direct trauma noted. States she took an old oxycodone for pain earlier this morning and this helped minimally. MD elicited complaint: back pain Pertinent past history: prior back pain Onset (ago): day(s) Timing: constant Severity: similar to previous episodes Similar Symptoms Previously: Yes Location: lumbar spine, right lower back and left lower back Radiation: none Exacerbating factors: movement and sitting upright Relieving factors: none Context: while lifting Associated symptoms: Deny abdominal pain, difficulty walking, fecal incontinence, fever(s) or syncope Related Data Home Medications ?Medication ?Instructions ?Recorded ?Confirmed levocetirizine 5 mg tablet 5 mg PO DAILY 02/21/20 09/14/24 albuterol sulfate 90 mcg/actuation 2 puff inhalation QID PRN 12/03/20 09/14/24 aerosol inhaler (ProAir HFA) Shortness Of Breath tizanidine 4 mg tablet 4 mg PO Q6H PRN Spasms 12/03/20 09/14/24 duloxetine 30 mg capsule,delayed 30 mg PO DAILY 07/03/21 09/14/24 release baclofen 10 mg tablet 10 mg PO BID 02/16/22 09/14/24 magnesium 200 mg tablet 200 mg PO DAILY 04/13/23 09/14/24 multivitamin (Daily Multi-Vitamin 1 tab PO DAILY 04/13/23 09/14/24 tablet) oxycodone 5 mg capsule 5 mg PO Q8H PRN 08/04/23 09/14/24 acetaminophen 500 mg capsule 1,000 mg PO DAILY 02/22/24 09/14/24 tramadol 25 mg tablet 25 mg PO QID PRN 03/14/24 09/14/24 Previous Rx's ?Medication ?Instructions ?Recorded pantoprazole 40 mg tablet,delayed 40 mg PO BIDWMEAL #0 tabs 12/06/20 release fluticasone propionate 50 2 spray intranasal DAILY #16 grams 02/04/23 mcg/actuation nasal spray,suspension (Flonase Allergy Relief) ondansetron 4 mg disintegrating 4 mg PO Q6H PRN nausea and 05/21/23 tablet vomiting #30 tabs prednisone 20 mg tablet See Rx Instructions PO .COMPLEX 02/22/24 PRN joint pain flare #30 tabs oseltamivir 75 mg capsule (Tamiflu) 75 mg PO BID 5 days #10 caps 05/13/24 prednisone 20 mg tablet See Rx Instructions .Route 05/13/24 .COMPLEX #14 tabs budesonide 0.5 mg/2 mL suspension 0.5 mg (2 mL) inhalation BID #60 mL 05/18/24 for nebulization doxycycline hyclate 100 mg capsule 100 mg PO BID #20 caps 05/18/24 prednisone 10 mg tablets in a dose See Rx Instructions PO PER PKG DIR 05/18/24 pack #21 ea azithromycin 250 mg tablet See Rx Instructions PO .COMPLEX #6 05/20/24 tabs lmqrgamwwnudeil-givhknotlopbpku-GQ 5 ml PO Q6H PRN cold symptoms #118 05/20/24 2 mg-30 mg-10 mg/5 mL oral syrup mL (Bromfed DM) ondansetron 8 mg disintegrating 8 mg PO Q8H PRN nausea and 08/04/24 tablet vomiting #30 tabs prednisone 20 mg tablet 20 mg PO DAILY #5 tabs 08/04/24 albuterol sulfate 2.5 mg/3 mL See Rx Instructions .Route 08/05/24 (0.083 %) solution for nebulization .COMPLEX #75 mL leflunomide 20 mg tablet 20 mg PO DAILY #90 tabs 09/05/24 azithromycin 250 mg tablet See Rx Instructions PO .COMPLEX #6 09/14/24 tabs sulfasalazine 500 mg tablet See Rx Instructions PO .COMPLEX 10/04/24 #90 tabs Allergies Allergy/AdvReac Type Severity Reaction Status Date / Time glycerin Allergy break out Verified 12/21/24 11:14 into sore with bright redness morphine Allergy Unknown Verified 12/21/24 11:14 adhesive tape AdvReac UNK Verified 12/21/24 11:14 codeine AdvReac RASH Verified 12/21/24 11:14 latex AdvReac ITCHING Verified 12/21/24 11:14 Penicillins AdvReac RASH Verified 12/21/24 11:14 Review of Systems General: Reports: 10 or more systems reviewed and unremarkable except in HPI and below Const: Reports: other (denies trauma); Denies: fever(s), change in weight or night sweats Card: Denies: chest pain, lightheadedness or syncope Resp: Denies: dyspnea GI: Denies: abdominal pain or fecal incontinence : Denies: urinary incontinence Musc: Reports: back pain; Denies: neck pain or extremity pain Skin/Breast: Denies: rash or skin pain Neuro: Denies: headache(s), numbness in extremities, weakness in extremities, sensory changes, lack of coordination, difficulty walking, frequent falls or involuntary movements PFSH ED PFSH: Medical History Psoriatic arthritis Fibromyalgia Degenerative joint disease (DJD) of lumbar spine High risk medication use Skin lesions, generalized Inflammatory arthritis Allergic reaction Constipation GERD (gastroesophageal reflux disease) Surgical History Status post colonoscopy (12/06/20) normal H/O esophagogastroduodenoscopy (12/06/20) gastritis, duodenitis H/O oral surgery Hx of dilation and curettage Hx of removal of cyst behind both ears Hx of appendectomy lap-1979 Hx of shoulder surgery right shoulder tear repair-2017 Hx of carpal tunnel repair right side- 2018 Family History Mother Heart disease Diabetes Father Diabetes Family/Other Cancer breast Social History Smoking and tobacco/nicotine status: former use of tobacco/nicotine Alcohol intake: current Alcohol intake frequency: holidays/special occasions only Physical Exam Const: COMMON NORMALS: patient oriented x3, no limitations, healthy appearing and alert NUTRITIONAL APPEARANCE: obese OTHER: Appears uncomfortable secondary to low back pain Resp: COMMON NORMALS: normal respiratory effort, No retractions, No use of accessory muscles and clear to auscultation bilaterally AUSCULTATION: clear to auscultation bilaterally Cardio: COMMON NORMALS: regular rate, regular rhythm, S1 normal heart sound present and S2 normal heart sound present RATE: regular rate RHYTHM: regular rhythm HEART SOUNDS: S1 normal heart sound present and S2 normal heart sound present Back/Pelvis: COMMON NORMALS: straight leg raise negative bilaterally OTHER: Normal visual examination. No spinous process tenderness or paracervical, parathoracic, or paralumbar tenderness to palpation. Pain with range of motion of the low back. Extremity: COMMON NORMALS: normal to inspection and full ROM Neuro: COMMON NORMALS: patient oriented x3, moves all extremities, no focal motor deficits, no sensory deficits noted, deep tendon reflexes 2+ bilaterally and gait normal SENSORIUM/ORIENTATION: Yes alert OTHER: L3, L4, L5, and S1 nerve sensations intact. Normal knee jerk and ankle jerk reflexes. Skin: COMMON NORMALS: no rashes or lesions noted GENERAL SKIN EXAM: no rashes or lesions noted Course Vital Signs: Vital signs: Vital Signs Temperature 97.8 F 12/21/24 11:07 Pulse Rate 93 12/21/24 11:07 Blood Pressure 154/87 12/21/24 11:07 Pulse Oximetry 97 12/21/24 11:07 Oxygen Delivery Me thod Room Air 12/21/24 11:07 MDM - Back Pain/Injury Medical Decision Making This patient presented with acute on chronic low back pain, it began last night when she bent over to pick something up. History of similar, states that normally this is improved with steroid shot. She sees rheumatology for her arthritis, sees pain management chronically, and has seen orthospine in the past. She had no red flag symptoms with her history or on exam, she notes improvement after IM Decadron here accompanied by other medications. Urinalysis was obtained, showing red blood cells present but she states she just got off her menstrual cycle. Suspect acute on chronic low back pain, no signs or symptoms of cauda equina, she will be allowed discharge home to continue outpatient therapy and to follow-up with her regular provider and other specialists. Labs Laboratory Results Urine Color Yellow (Yellow) 12/21/24 13:50 Urine Appearance Clear (CLEAR) 12/21/24 13:50 Urine pH 5.5 (5-7) 12/21/24 13:50 Ur Specific [place] 1.015 (1.005-1.030) 12/21/24 13:50 Urine Protein Negative (Negative) 12/21/24 13:50 Urine Glucose (UA) Negative (Normal) 12/21/24 13:50 Urine Ketones Negative (Negative) 12/21/24 13:50 Urine Blood 2+ (Negative) A 12/21/24 13:50 Urine Nitrate Negative (Negative) 12/21/24 13:50 Urine Bilirubin Negative (Negative) 12/21/24 13:50 Urine Urobilinogen 0.2 mg/dL (Negative) 12/21/24 13:50 Ur Leukocyte Esterase Negative (Negative) 12/21/24 13:50 Urine RBC 21-50 /hpf (0-2) H 12/21/24 13:50 Urine WBC 6-10 /hpf (0-5) 12/21/24 13:50 Ur Squamous Epith Cells 0-5 /hpf (0-5) 12/21/24 13:50 Amorphous Sediment Not Reportable 12/21/24 13:50 Urine Bacteria None seen /hpf (NONE) 12/21/24 13:50 Hyaline Casts 0.40 /lpf 12/21/24 13:50 No radiology studies performed this visit Discharge Plan Discharge Patient Disposition: Home Clinical Impression: Acute on chronic low back pain Condition: Stable Prescriptions: No Action levocetirizine 5 mg tablet 5 mg PO DAILY fluticasone propionate [Flonase Allergy Relief] 50 mcg/actuation spray,suspension 2 spray intranasal DAILY Qty: 16 0RF Rx Instructions: administer into each nostril ondansetron 4 mg tablet,disintegrating 4 mg PO Q6H PRN (Reason: nausea and vomiting) Qty: 30 0RF oxycodone 5 mg capsule 5 mg PO Q8H PRN prednisone 20 mg tablet See Rx Instructions PO .COMPLEX PRN (Reason: joint pain flare) Qty: 30 1RF Rx Instructions: take 2 tab daily for 7 days as needed for arthritis flare PO PRN; acetaminophen 500 mg capsule 1,000 mg PO DAILY prednisone 20 mg tablet See Rx Instructions .Route .COMPLEX Qty: 14 0RF Rx Instructions: 2 tabs PO daily for 4 days, then 1 tab PO daily X 4 days, then 0.5 tab daily for 4 days, then stop; oseltamivir [Tamiflu] 75 mg capsule 75 mg PO BID 5 Days Qty: 10 0RF azithromycin 250 mg tablet See Rx Instructions PO .COMPLEX Qty: 6 0RF Rx Instructions: take 2 tablets today (day 1), then one tablet for 4 days (days 2-5) PO mnrwdcsehizdzry-hsrgzohrk-HJ [Bromfed DM] 2-30-10 mg/5 mL syrup 5 ml PO Q6H PRN (Reason: cold symptoms) Qty: 118 0RF azithromycin 250 mg tablet See Rx Instructions PO .COMPLEX Qty: 6 0RF Rx Instructions: For 250 mg dose pack: take 500 mg today (day 1), then 250 mg for 4 days (days 2-5) PO baclofen 10 mg tablet 10 mg PO BID multivitamin [Daily Multi-Vitamin] Tablet 1 tab PO DAILY magnesium 200 mg tablet 200 mg PO DAILY tramadol 25 mg tablet 25 mg PO QID PRN doxycycline hyclate 100 mg capsule 100 mg PO BID Qty: 20 0RF prednisone 10 mg tablets,dose pack See Rx Instructions PO PER PKG DIR Qty: 21 0RF Rx Instructions: PO PER PKG DIR budesonide 0.5 mg/2 mL suspension for nebulization 0.5 mg inhalation BID Qty: 60 0RF prednisone 20 mg tablet 20 mg PO DAILY Qty: 5 0RF ondansetron 8 mg tablet,disintegrating 8 mg PO Q8H PRN (Reason: nausea and vomiting) Qty: 30 0RF albuterol sulfate 2.5 mg /3 mL (0.083 %) solution for nebulization See Rx Instructions .ROUTE .COMPLEX Qty: 75 1RF Dose Instruction: inhale THE contents of one vial via NEBULIZER EVERY 4 HOURS NEEDED FOR SHORTNESS OF BREATH OR wheezing Rx Instructions: inhale THE contents of one vial via NEBULIZER EVERY 4 HOURS NEEDED FOR SHORTNESS OF BREATH OR wheezing leflunomide 20 mg tablet 20 mg PO DAILY Qty: 90 1RF sulfasalazine 500 mg tablet See Rx Instructions PO .COMPLEX Qty: 90 0RF Rx Instructions: take 2 tabs in am and 1 tab in pm orally; tizanidine 4 mg tablet 4 mg PO Q6H PRN (Reason: Spasms) albuterol sulfate [ProAir HFA] 90 mcg/actuation HFA aerosol inhaler 2 puff INHALATION QID PRN (Reason: Shortness Of Breath) pantoprazole 40 mg tablet,delayed release (DR/EC) 40 mg PO BIDWMEAL Qty: 0 0RF duloxetine 30 mg capsule,delayed release(DR/EC) 30 mg PO DAILY Discharge Orders: Discharge ED (Routine); Ordered 12/21/24 Ordered By: Baldev Valles Referrals: Don Shi MD [Primary Care Provider, Family Practice] Patient Instructions: Patient Portal & Nany Instructions Activity Restrictions/Additional Instructions: Please continue all of your home medications. Please continue your follow-ups with pain management, rheumatology, and with primary care. Return with any loss of function of your bowel or bladder, numbness in the groin region, fevers, or any other concerns that you have. I hope you get feeling better soon. Print Language: Macedonian Coding Level of Care Code ED Tumbling Barrel Painter for Chg Fwd Documented by User: Savage Gaona DO 12/21/24 14:28 HPI - Back Pain/Injury General: Chief Complaint: Back Pain/Injury Stated Complaint: Mid to Lower Back Pain Time Seen by Provider: 12/21/24 13:00 Related Data Home Medications ?Medication ?Instructions ?Recorded ?Confirmed levocetirizine 5 mg tablet 5 mg PO DAILY 02/21/20 09/14/24 albuterol sulfate 90 mcg/actuation 2 puff inhalation QID PRN 12/03/20 09/14/24 aerosol inhaler (ProAir HFA) Shortness Of Breath tizanidine 4 mg tablet 4 mg PO Q6H PRN Spasms 12/03/20 09/14/24 duloxetine 30 mg capsule,delayed 30 mg PO DAILY 07/03/21 09/14/24 release baclofen 10 mg tablet 10 mg PO BID 02/16/22 09/14/24 magnesium 200 mg tablet 200 mg PO DAILY 04/13/23 09/14/24 multivitamin (Daily Multi-Vitamin 1 tab PO DAILY 04/13/23 09/14/24 tablet) oxycodone 5 mg capsule 5 mg PO Q8H PRN 08/04/23 09/14/24 acetaminophen 500 mg capsule 1,000 mg PO DAILY 02/22/24 09/14/24 tramadol 25 mg tablet 25 mg PO QID PRN 03/14/24 09/14/24 Previous Rx's ?Medication ?Instructions ?Recorded pantoprazole 40 mg tablet,delayed 40 mg PO BIDWMEAL #0 tabs 12/06/20 release fluticasone propionate 50 2 spray intranasal DAILY #16 grams 02/04/23 mcg/actuation nasal spray,suspension (Flonase Allergy Relief) ondansetron 4 mg disintegrating 4 mg PO Q6H PRN nausea and 05/21/23 tablet vomiting #30 tabs prednisone 20 mg tablet See Rx Instructions PO .COMPLEX 02/22/24 PRN joint pain flare #30 tabs oseltamivir 75 mg capsule (Tamiflu) 75 mg PO BID 5 days #10 caps 05/13/24 prednisone 20 mg tablet See Rx Instructions .Route 05/13/24 .COMPLEX #14 tabs budesonide 0.5 mg/2 mL suspension 0.5 mg (2 mL) inhalation BID #60 mL 05/18/24 for nebulization doxycycline hyclate 100 mg capsule 100 mg PO BID #20 caps 05/18/24 prednisone 10 mg tablets in a dose See Rx Instructions PO PER PKG DIR 05/18/24 pack #21 ea azithromycin 250 mg tablet See Rx Instructions PO .COMPLEX #6 05/20/24 tabs lajphqadogtrmgc-fwiauycjqwnocrw-WI 5 ml PO Q6H PRN cold symptoms #118 05/20/24 2 mg-30 mg-10 mg/5 mL oral syrup mL (Bromfed DM) ondansetron 8 mg disintegrating 8 mg PO Q8H PRN nausea and 08/04/24 tablet vomiting #30 tabs prednisone 20 mg tablet 20 mg PO DAILY #5 tabs 08/04/24 albuterol sulfate 2.5 mg/3 mL See Rx Instructions .Route 08/05/24 (0.083 %) solution for nebulization .COMPLEX #75 mL leflunomide 20 mg tablet 20 mg PO DAILY #90 tabs 09/05/24 azithromycin 250 mg tablet See Rx Instructions PO .COMPLEX #6 09/14/24 tabs sulfasalazine 500 mg tablet See Rx Instructions PO .COMPLEX 10/04/24 #90 tabs Allergies Allergy/AdvReac Type Severity Reaction Status Date / Time glycerin Allergy break out Verified 12/21/24 11:14 into sore with bright redness morphine Allergy Unknown Verified 12/21/24 11:14 adhesive tape AdvReac UNK Verified 12/21/24 11:14 codeine AdvReac RASH Verified 12/21/24 11:14 latex AdvReac ITCHING Verified 12/21/24 11:14 Penicillins AdvReac RASH Verified 12/21/24 11:14 PFSH ED PFSH: Medical History Psoriatic arthritis Fibromyalgia Degenerative joint disease (DJD) of lumbar spine High risk medication use Skin lesions, generalized Inflammatory arthritis Allergic reaction Constipation GERD (gastroesophageal reflux disease) Surgical History Status post colonoscopy (12/06/20) normal H/O esophagogastroduodenoscopy (12/06/20) gastritis, duodenitis H/O oral surgery Hx of dilation and curettage Hx of removal of cyst behind both ears Hx of appendectomy lap-1979 Hx of shoulder surgery right shoulder tear repair-2016 Hx of carpal tunnel repair right side- 2018 Family History Mother Heart disease Diabetes Father Diabetes Family/Other Cancer breast Social History Smoking and tobacco/nicotine status: former use of tobacco/nicotine Alcohol intake: current Alcohol intake frequency: holidays/special occasions only Course Vital Signs: Vital signs: Vital Signs Temperature 97.8 F 12/21/24 11:07 Pulse Rate 93 12/21/24 11:07 Blood Pressure 154/87 12/21/24 11:07 Pulse Oximetry 97 12/21/24 11:07 Oxygen Delivery Me thod Room Air 12/21/24 11:07 MDM - Back Pain/Injury Medical Decision Making This patient presented with acute on chronic low back pain, it began last night when she bent over to pick something up. History of similar, states that normally this is improved with steroid shot. She sees rheumatology for her arthritis, sees pain management chronically, and has seen orthospine in the past. She had no red flag symptoms with her history or on exam, she notes improvement after IM Decadron here accompanied by other medications. Urinalysis was obtained, showing red blood cells present but she states she just got off her menstrual cycle. Suspect acute on chronic low back pain, no signs or symptoms of cauda equina, she will be allowed discharge home to continue outpatient therapy and to follow-up with her regular provider and other specialists. Chart reviewed and patient discussed with midlevel. Agree with assessment and plan. Labs Laboratory Results Urine Color Yellow (Yellow) 12/21/24 13:50 Urine Appearance Clear (CLEAR) 12/21/24 13:50 Urine pH 5.5 (5-7) 12/21/24 13:50 Ur Specific [place] 1.015 (1.005-1.030) 12/21/24 13:50 Urine Protein Negative (Negative) 12/21/24 13:50 Urine Glucose (UA) Negative (Normal) 12/21/24 13:50 Urine Ketones Negative (Negative) 12/21/24 13:50 Urine Blood 2+ (Negative) A 12/21/24 13:50 Urine Nitrate Negative (Negative) 12/21/24 13:50 Urine Bilirubin Negative (Negative) 12/21/24 13:50 Urine Urobilinogen 0.2 mg/dL (Negative) 12/21/24 13:50 Ur Leukocyte Esterase Negative (Negative) 12/21/24 13:50 Urine RBC 21-50 /hpf (0-2) H 12/21/24 13:50 Urine WBC 6-10 /hpf (0-5) 12/21/24 13:50 Ur Squamous Epith Cells 0-5 /hpf (0-5) 12/21/24 13:50 Amorphous Sediment Not Reportable 12/21/24 13:50 Urine Bacteria None seen /hpf (NONE) 12/21/24 13:50 Hyaline Casts 0.40 /lpf 12/21/24 13:50 Discharge Plan Discharge Patient Disposition: Home Clinical Impression: Acute on chronic low back pain Condition: Stable Prescriptions: No Action levocetirizine 5 mg tablet 5 mg PO DAILY fluticasone propionate [Flonase Allergy Relief] 50 mcg/actuation spray,suspension 2 spray intranasal DAILY Qty: 16 0RF Rx Instructions: administer into each nostril ondansetron 4 mg tablet,disintegrating 4 mg PO Q6H PRN (Reason: nausea and vomiting) Qty: 30 0RF oxycodone 5 mg capsule 5 mg PO Q8H PRN prednisone 20 mg tablet See Rx Instructions PO .COMPLEX PRN (Reason: joint pain flare) Qty: 30 1RF Rx Instructions: take 2 tab daily for 7 days as needed for arthritis flare PO PRN; acetaminophen 500 mg capsule 1,000 mg PO DAILY prednisone 20 mg tablet See Rx Instructions .Route .COMPLEX Qty: 14 0RF Rx Instructions: 2 tabs PO daily for 4 days, then 1 tab PO daily X 4 days, then 0.5 tab daily for 4 days, then stop; oseltamivir [Tamiflu] 75 mg capsule 75 mg PO BID 5 Days Qty: 10 0RF azithromycin 250 mg tablet See Rx Instructions PO .COMPLEX Qty: 6 0RF Rx Instructions: take 2 tablets today (day 1), then one tablet for 4 days (days 2-5) PO pfxmnoiedzpsbwj-manzluspy-EO [Bromfed DM] 2-30-10 mg/5 mL syrup 5 ml PO Q6H PRN (Reason: cold symptoms) Qty: 118 0RF azithromycin 250 mg tablet See Rx Instructions PO .COMPLEX Qty: 6 0RF Rx Instructions: For 250 mg dose pack: take 500 mg today (day 1), then 250 mg for 4 days (days 2-5) PO baclofen 10 mg tablet 10 mg PO BID multivitamin [Daily Multi-Vitamin] Tablet 1 tab PO DAILY magnesium 200 mg tablet 200 mg PO DAILY tramadol 25 mg tablet 25 mg PO QID PRN doxycycline hyclate 100 mg capsule 100 mg PO BID Qty: 20 0RF prednisone 10 mg tablets,dose pack See Rx Instructions PO PER PKG DIR Qty: 21 0RF Rx Instructions: PO PER PKG DIR budesonide 0.5 mg/2 mL suspension for nebulization 0.5 mg inhalation BID Qty: 60 0RF prednisone 20 mg tablet 20 mg PO DAILY Qty: 5 0RF ondansetron 8 mg tablet,disintegrating 8 mg PO Q8H PRN (Reason: nausea and vomiting) Qty: 30 0RF albuterol sulfate 2.5 mg /3 mL (0.083 %) solution for nebulization See Rx Instructions .ROUTE .COMPLEX Qty: 75 1RF Dose Instruction: inhale THE contents of one vial via NEBULIZER EVERY 4 HOURS NEEDED FOR SHORTNESS OF BREATH OR wheezing Rx Instructions: inhale THE contents of one vial via NEBULIZER EVERY 4 HOURS NEEDED FOR SHORTNESS OF BREATH OR wheezing leflunomide 20 mg tablet 20 mg PO DAILY Qty: 90 1RF sulfasalazine 500 mg tablet See Rx Instructions PO .COMPLEX Qty: 90 0RF Rx Instructions: take 2 tabs in am and 1 tab in pm orally; tizanidine 4 mg tablet 4 mg PO Q6H PRN (Reason: Spasms) albuterol sulfate [ProAir HFA] 90 mcg/actuation HFA aerosol inhaler 2 puff INHALATION QID PRN (Reason: Shortness Of Breath) pantoprazole 40 mg tablet,delayed release (DR/EC) 40 mg PO BIDWMEAL Qty: 0 0RF duloxetine 30 mg capsule,delayed release(DR/EC) 30 mg PO DAILY Discharge Orders: Discharge ED (Routine); Ordered 12/21/24 Ordered By: Baldev Valles Referrals: Don Shi MD [Primary Care Provider, Family Practice] Patient Instructions: Patient Portal & Nany Instructions Activity Restrictions/Additional Instructions: Please continue all of your home medications. Please continue your follow-ups with pain management, rheumatology, and with primary care. Return with any loss of function of your bowel or bladder, numbness in the groin region, fevers, or any other concerns that you have. I hope you get feeling better soon. Print Language: Macedonian Coding Level of Care Code ED Tumbling Barrel Painter for Shagufta Christopher
[2024-12-21] MEDS: orphenadrine 30 mg/mL Inj 2 mL 60 MG IM (13:52)
[2024-12-21] MEDS: HYDROcodone-acetaminophen 5-325 mg Tablet 1 TAB PO (13:53)
[2024-12-21 14:01] LABS: Glucose Urine UA Negative (Normal); Nitrate Urine Negative (Negative); Specific Gravity, Urine 1.015 (1.005-1.030)
[2024-12-21 14:04] LABS: Add Urine Microscopic? YES
[2024-12-21 14:30] VITALS: BP 167/68; PULSE 78; O2SAT 100
== END 2024-12-21 14:30 | disposition home or self-care (01) ==
PROVIDERS: Emergency Provider Physician Assistant; PCP Family Medicine
DX: M54.50 Low back pain, unspecified (principal); Z87.891 Personal history of nicotine dependence
CPT/HCPCS: 81001; 87086; 96372; 99284; J1100; J1885; J2360; J9999

== ENCOUNTER → 2025-01-25 09:37 | Outpatient (BNVA) | payer MEDICAID, SELFPAY | PROVIDERS: PCP Family Medicine; Visit Provider Specialist | DX: M17.12 Unilateral primary osteoarthritis, left knee (principal); E66.01 Morbid (severe) obesity due to excess calories; Z68.41 Body mass index [BMI] 40.0-44.9, adult | CPT/HCPCS: 73560; 73565 ==